=== PATIENT | male | born 1990 | race Caucasian/White ===

== ENCOUNTER 2019-07-27 13:05 | Emergency (ER) | payer BC ==
[~2019-07-27] VITALS: Ht 167.6 cm; Wt 6.0 kg
--- NOTE | 2019-07-27 13:25 | NUR ---
PER SECURITY, PT OUTSIDE WITH FAMILY, CHANDA WENT OUT TO SEE IF PATIENT WILL COME IN.
[2019-07-27 14:42] LABS: CLARITY,URINE SLIGHTLY CLOUDY (Clear); COLOR,URINE AMBER (Yellow); GLUCOSE, URINE NEGATIVE (Neg); KETONES,URINE 15 mg/dl (Neg); LEUKOCYTE ESTERASE ,URINE NEGATIVE (Neg); NITRITES, URINE NEGATIVE (Neg); OCCULT BLOOD,URINE NEGATIVE (Neg); PH,URINE 5.5 (4.8-8.0); PROTEIN,URINE 30 mg/dl (Neg); UA COLLECTION TYPE CLN CATCH MIDSTREAM
[2019-07-27 14:48] LABS: AMORPHOUS URATES 1+; BACTERIA,URINE FEW /HPF (Neg); CAL OXALATE CRYSTALS 2+ /HPF (NEGATIVE); MUCUS STRANDS MANY /LPF (Neg); RBC,URINE NONE SEEN /HPF (0-2); SQUAMOUS EPITHELIAL CELL,UR FEW /LPF (FEW); WBC,URINE 0-4 /HPF (0-4)
--- NOTE | 2019-07-27 15:01 | NUR ---
Pt is calm and cooperative at this time. Pt has siter at bedside. Pt is awaiting lab draw for further orders or disposition.
[2019-07-27 15:34] LABS: BASOPHILS % (AUTO) 0.2 % (0-1); EOSINOPHILS % (AUTO) 0.1 % (0-6); HEMOGLOBIN 16.5 g/dl (14.0-17.9); LYMPHOCYTES # (AUTO) 1.4 X10'3 (1.1-4.8); LYMPHOCYTES % (AUTO) 9.7 % (21-51); MEAN CORPUSCULAR HGB CONC 34.3 g/dL (33.0-36.5); MEAN CORPUSCULAR VOLUME 90.5 FL (78-98); MEAN PLATELET VOLUME 6.9 FL (7.4-10.4); MONOCYTES # (AUTO) 0.9 X10'3 (0-0.9); MONOCYTES % (AUTO) 6.2 % (2-12); NEUTROPHILS # (AUTO) 11.8 X10'3 (1.8-7.7); NEUTROPHILS % (AUTO) 83.8 % (42-75); PLATELET COUNT 264 X10'3 (140-440); RED BLOOD COUNT 5.31 X10'6 (4.70-6.10); WHITE BLOOD COUNT 14.1 X10'3 (4.5-11.0)
[2019-07-27 15:56] LABS: ALANINE AMINOTRANSFERASE 31 U/L (12-78); ALBUMIN 4.4 G/DL (3.4-5.0); ALBUMIN/GLOBULIN RATIO 1.1 (1.1-1.5); ALKALINE PHOSPHATASE 72 IU/L (46-116); ANION GAP 10 (8-16); ASPARTATE AMINO TRANSFERASE 16 U/L (10-37); BILIRUBIN,TOTAL 0.8 MG/DL (0.1-1.0); BLOOD UREA NITROGEN 17 MG/DL (7-18); BUN/CREATININE RATIO 16.7 (5.4-32.0); CALCIUM 9.4 MG/DL (8.5-10.1); CHLORIDE 99 MMOL/L (99-107); CREATININE 1.02 MG/DL (0.60-1.10); GLUCOSE 94 MG/DL (70-104); POTASSIUM 4.2 MMOL/L (3.5-5.1); SODIUM 137 MMOL/L (135-145); TOTAL CARBON DIOXIDE 28.5 MMOL/L (24-32); TOTAL PROTEIN 8.3 G/DL (6.4-8.2); eGFR 87 ML/MIN
--- NOTE | 2019-07-27 16:00 | NUR ---
Pt is calm and cooperative, denies pain, respirations even and unlabored.
--- NOTE | 2019-07-27 16:00 | NUR ---
Note winstonone in EDM - 07/27/19 at 1621 by ERIC Pt is resting but wakes easily. Pt has sitter nearby. No distress noted. Chart re-faxed to [facility] office,
[2019-07-27 16:01] LABS: URINE AMPHETAMINE SCREEN NEGATIVE (Neg); URINE BARBITUATE SCREEN NEGATIVE (Neg); URINE BENZODIAZEPINES SCREEN NEGATIVE (Neg); URINE CANNABINOID SCREEN POSITIVE (Neg); URINE COCAINE SCREEN NEGATIVE (Neg); URINE METHADONE SCREEN NEGATIVE (Neg); URINE OPIATE SCREEN NEGATIVE (Neg); URINE PHENCYCLIDINE SCREEN NEGATIVE (Neg)
[2019-07-27 16:06] LABS: ETHANOL < 0.010 GM/DL (0.0-0.010)
[2019-07-27 16:07] LABS: ACETAMINOPHEN < 2.0 UG/ML (10-30)
[2019-07-27] MEDS ORDERED: HYDR50TA65 PO (16:35)
[2019-07-27] MEDS ORDERED: VENL37.589 PO (16:35)
[2019-07-27] MEDS ORDERED: OMEP-50 PO (16:35)
--- NOTE | 2019-07-27 16:36 | NUR ---
SPOKE WITH PT ABOUT CURRENT MEDS. PT REPORTS HE WAS STARTED ON VENLAFAXNE 37.5MG 07/04/19 . HE STATES HE WAS INSTRUCTED TO DOUBLE THE DOSE BY HIS PRIMARY CARE AFTER 1 MONTH IF HE FELT IT WAS WORKING. PT STATES HE STARTED TO INCREASE THE DOSE APROX 1 WEEK AGO AND HE SAID HE WAS "FEELING SO GOOD" HE STARTED TAKING MORE THAN 1/DAY. HE STATES HE MIGHT HAVE BEEN TAKING UP TO 3 THOUGHOUT A DAY. PT ALSO STATES HE STATED EATING "TIP BUTTER" THC EDDABLES A FEW DAYS AGO AND HE HAS NEVER HAD THEM BEFORE. PT HAS RAPPID ANTONIO AND IS VERY ANXIOUS. INFORMED PT SOME OF HIS S/S MIGHT BE RELATED TO THE INCREASE IN HIS DOES OF THE MEDS. PT STATES HE HAS NOT SLEPTED IN A FEW DAYS. AND HE WATCHES THE CLOCK TO BE ABLE TO TAKE THE HYDROXYZINE Q 8 HRS BECAUSE "IT THE ONLY THING THAT HELP ME NOW" DR MACIAS NOTIFIED
[2019-07-27] MEDS: hydrOXYzine 25 MG tablet PO PRN (17:17)
--- NOTE | 2019-07-27 18:00 | NUR ---
PT BECAME AGGITATED AND STARTED PACING AROUND THE THOUGHT HIS WAS IN DR FOURNIER OFFICE. PT HAS A COUGH WITH YELLOW/BROWN SPUTUM. PT WAS GIVEN AN RX BY PMD YESTERDAY FOR ZITHROMAX AND HE DID NOT HAVE IT FILLED. SPOKE WITH DR MACIAS RE INCREASING AGGITATION AFTER THE ATARAX AND COUGH. VERBAL ORDER TO STOP ATARAX, ATIVAN 2MG IM AND START ZITHROMAX 500MG TONIGHT AND THEN 250MG PO DAILY X 4DAYS.
[2019-07-27] MEDS ORDERED: azithromycin 250mg tablet PO ONE (18:30)
[2019-07-27] MEDS ORDERED: LORazepam 2 mg/ml vial IM ONE (18:30)
--- NOTE | 2019-07-27 18:30 | NUR ---
EXPLAINED TO PT ABOUT REASON FOR ATIVAN PT WAS UNDERSTANDING AND ACCEPTING OF THE IM INJECTION. INTRODUCED PT TO CHERYL FROM [facility] AND [facility] AND EXPLAINED THEY WILL BE HERE TONIGHT IF HE NEEDS TO TALK PT UNDERSTATNDS. PT EATING DINNER AT THIS TIME
--- NOTE | 2019-07-27 19:00 | NUR ---
PT JACK [phone]
--- NOTE | 2019-07-27 19:24 | NUR ---
Elopement band #35 placed on pt's left wrist.
[2019-07-27] MEDS ORDERED: LORazepam 1 MG tablet PO ONE (20:15)
[2019-07-27] MEDS ORDERED: ziprasidone 20mg capsule PO ONE (20:15)
--- NOTE | 2019-07-27 20:22 | NUR ---
PATIENT PACING IN ROOM, FIGETING PUPILS DIALATED, ATTEMPTED TO WALK OUT THE BACK DOOR: REDIRECTED VERBALLY BACK TO BED: DID NOT OPEN DOOR ELOPEMENT BAND ON PATIENT: SECURITY HERE
--- NOTE | 2019-07-27 20:25 | NUR ---
SPOKE TO MD MACIAS REGARDING INCREASING AGITATION, FASTER PACING, SWEATY; DISCUSSED SEROTONIN SYNDROME.
--- NOTE | 2019-07-27 22:30 | NUR ---
CALLED PATIENTS WHO REPORTED NUMBER OF PILLS IN EFFEXOR BOTTLE AND ATARAX. PATIENT APPEARS TO HAVE INGESTED 9 PILLS MORE THAN HE SHOULD HAVE TAKEN. PATIENT IS PARANOID AND TALKING TO HIMSELF AT TIMES
--- NOTE | 2019-07-28 00:41 | NUR ---
PATIENT APPEARS TO BE SLEEPING RR EVEN AND UNLABORED WRAPPED IN BLANKET
--- NOTE | 2019-07-28 01:32 | NUR ---
Packet sent to [facility]. Unable to confirm receipt of packet as [id number] hours.
--- NOTE | 2019-07-28 02:24 | NUR ---
PATIENT APPEARS TO BE SLEEPING RR EVEN AND UNLABORED IN ROOM 20 IN ER OVERFLOW ON HIS LEFT SIDE
--- NOTE | 2019-07-28 04:21 | NUR ---
PATIENT APPEARS TO BE SLEEPING RR EVEN AND UNLABORED ON BACK
[2019-07-28 04:26] VITALS: BP 142/81
--- NOTE | 2019-07-28 06:05 | NUR ---
PER PATIENT'S ATARAX PRSCRIPTION: HE MAY HAVE TAKEN 4 PILLS MORE THAT PRESCRIBED
--- NOTE | 2019-07-28 07:25 | NUR ---
AWAKE AND ALERT. WALKING AROUND TO BATHROOM AND AROUND BED AREA. CALLED ON PHONE. APPEARS SLIGHTLY AGITATED, BUT IS COOPERATIVE WITH STAFF AT PRESENT.
[2019-07-28] MEDS: hydrOXYzine 25 MG tablet PO PRN (07:36)
--- NOTE | 2019-07-28 07:45 | NUR ---
PATIENT IS ACTIVE, WANDERING AROUND UNIT. MORNING MEDICATIONS GIVEN TO PATIENT. SECURITY ALERT TO POTENTIAL ELOPEMENT SITUATION.
[2019-07-28] MEDS ORDERED: pantoprazole 40mg Tablet.DR PO SCH (08:00)
[2019-07-28] MEDS ORDERED: venlafaxine XR 37.5mg cap (Q24H) PO SCH (08:00)
[2019-07-28] MEDS ORDERED: nicotine 7mg patch - 24hr TD SCH (09:00)
--- NOTE | 2019-07-28 09:50 | NUR ---
[facility] MENTAL HEALTH WORKER AT THE BEDSIDE TO EVALUATE PATIENT.
--- NOTE | 2019-07-28 10:22 | NUR ---
Break RN:[facility]/Whit at bedside.
--- NOTE | 2019-07-28 10:23 | NUR ---
Whit requesting med recommendations re:if patient needs flexeril dosage adjustment since it's making patient manic.Tech called [facility],no one available to eval patient at this time.Will relay to Primary RN.
--- NOTE | 2019-07-28 10:25 | NUR ---
patient up to the bathroom.
--- NOTE | 2019-07-28 10:57 | NUR ---
RESTING IN BED, WALKING AROUND ON AND OFF. NO DISTRESS NOTED.
--- NOTE | 2019-07-28 13:18 | NUR ---
RELIEVING RN FOR BREAK, PT IS SITTING UP ON EDGE OF BED TO EAT LUNCH, PT IS CALM AND COOPERATIVE
--- NOTE | 2019-07-28 13:44 | NUR ---
PT TALKING WITH MOM ON PHONE AND WOULD LIKE HER TO COME VISIT. SPOKE TO JASKARAN-MOM SAID IT WAS OK
--- NOTE | 2019-07-28 14:50 | NUR ---
RELIEVING RN FOR BREAK, PT RESTING IN BED, NO NEEDS AT THIS TIME.
--- NOTE | 2019-07-28 15:38 | NUR ---
PATRICIA ULRICH CONSULTED ON PT AND RECOMMENDS DISCHARGED. HE INFORMED DR. NJ AND SHE WILL BE WRITING DISCHARGE ORDERS. PARENTS AT BEDSIDE.
[2019-07-28] MEDS ORDERED: QUET-1 PO (16:02)
== END 2019-07-28 16:28 | disposition home or self-care (01) ==
LOC: ER 13:06
DX: F99 Mental disorder, not otherwise specified (principal); F17.200 Nicotine dependence, unspecified, uncomplicated; Z79.899 Other long term (current) drug therapy
CPT/HCPCS: 36415; 80053; 80305; 80320; 80329; 81001; 84439; 84443; 85025; 96372; 99284; J2060; Z7610

== ENCOUNTER 2020-05-24 05:14 | Emergency (ER) | payer BC, OTHER ==
[~2020-05-24] VITALS: Ht 167.6 cm; Wt 72.7 kg
[~2020-05-24 05:14] MED LIST: HYDR50TA65 PO; OMEP-50 PO; QUET-1 PO; VENL37.589 PO
[2020-05-24] MEDS ORDERED: LORazepam 2 mg/ml vial IM ONE ×2 (05:20→05:50)
[2020-05-24] MEDS ORDERED: haloperidol lactate 5mg/ml inj IM ONE (05:20)
[2020-05-24] MEDS ORDERED: diphenhydrAMINE 50 mg/ml inj IM ONE (05:20)
[2020-05-24 05:55] LABS: BASOPHILS % (AUTO) 0.2 % (0-1); EOSINOPHILS % (AUTO) 0.3 % (0-6); HEMOGLOBIN 15.4 g/dl (14.0-17.9); LYMPHOCYTES # (AUTO) 1.6 X10'3 (1.1-4.8); LYMPHOCYTES % (AUTO) 15.6 % (21-51); MEAN CORPUSCULAR HEMOGLOBIN 31.9 PG (27.0-31.0); MEAN CORPUSCULAR HGB CONC 35.1 g/dL (33.0-36.5); MEAN CORPUSCULAR VOLUME 90.8 FL (78-98); MEAN PLATELET VOLUME 6.9 FL (7.4-10.4); MONOCYTES % (AUTO) 9.5 % (2-12); NEUTROPHILS # (AUTO) 7.5 X10'3 (1.8-7.7); NEUTROPHILS % (AUTO) 74.4 % (42-75); PLATELET COUNT 225 X10'3 (140-440); RED BLOOD COUNT 4.84 X10'6 (4.70-6.10); RED CELL DISTRIBUTION WIDTH 12.2 % (11.5-14.5); WHITE BLOOD COUNT 10.1 X10'3 (4.5-11.0)
--- NOTE | 2020-05-24 06:20 | NUR ---
PACKET FAXED TO [facility]
[2020-05-24 06:24] LABS: ALANINE AMINOTRANSFERASE 20 U/L (12-78); ALBUMIN/GLOBULIN RATIO 1.3 (1.1-1.5); ALKALINE PHOSPHATASE 48 IU/L (46-116); ANION GAP 11 (8-16); ASPARTATE AMINO TRANSFERASE 20 U/L (10-37); BILIRUBIN,TOTAL 0.6 MG/DL (0.1-1.0); BLOOD UREA NITROGEN 12 MG/DL (7-18); BUN/CREATININE RATIO 13.6 (5.4-32.0); CALCIUM 9.5 MG/DL (8.5-10.1); CHLORIDE 103 MMOL/L (99-107); CREATININE 0.88 MG/DL (0.60-1.10); GLUCOSE 117 MG/DL (70-104); POTASSIUM 3.4 MMOL/L (3.5-5.1); SODIUM 137 MMOL/L (135-145); TOTAL CARBON DIOXIDE 23.4 MMOL/L (24-32); eGFR > 90 ML/MIN
--- NOTE | 2020-05-24 06:29 | NUR ---
PT BACK FROM CT, SLEEPING QUIETLY NO ACUTE DISTRESS NOTED AT THIS TIME.
[2020-05-24 06:34] LABS: ETHANOL < 0.010 GM/DL (0.0-0.010)
--- NOTE | 2020-05-24 09:20 | NUR ---
pt sleeping but arousable, cooperative in collecting urine. voided 300cc clear yellow urine in urinal.. ua sent to lab
[2020-05-24 09:35] LABS: CLARITY,URINE CLEAR (Clear); COLOR,URINE YELLOW (Yellow); GLUCOSE, URINE NEGATIVE (Neg); KETONES,URINE NEGATIVE (Neg); LEUKOCYTE ESTERASE ,URINE NEGATIVE (Neg); NITRITES, URINE NEGATIVE (Neg); OCCULT BLOOD,URINE NEGATIVE (Neg); PROTEIN,URINE NEGATIVE (Neg); UROBILINOGEN,URINE 0.2 E.U/dL (0.2-1.0)
[2020-05-24 09:44] LABS: URINE AMPHETAMINE SCREEN NEGATIVE (Neg); URINE BARBITUATE SCREEN NEGATIVE (Neg); URINE BENZODIAZEPINES SCREEN NEGATIVE (Neg); URINE CANNABINOID SCREEN POSITIVE (Neg); URINE COCAINE SCREEN NEGATIVE (Neg); URINE METHADONE SCREEN NEGATIVE (Neg); URINE OPIATE SCREEN NEGATIVE (Neg); URINE PHENCYCLIDINE SCREEN NEGATIVE (Neg)
[2020-05-24 09:49] LABS: UA COLLECTION TYPE CLN CATCH MIDSTREAM
--- NOTE | 2020-05-24 10:01 | NUR ---
PT in bed. Responds to verbal stimuli. Unable to answer questions re medical hx/meds d/t being tired
--- NOTE | 2020-05-24 10:12 | NUR ---
Update from Pt's Shantelle who called. Pt was recently started on Effexor but pt states pt was on this medication several months ago and had similar manic state rxn. She states his current Phys MD did not know this and started him on Effexor on May 13. Since then, pt has been having same rxn as before with increased anju and violent/erratic behavior. Pt Psychiatrist is Carolyn Parker from Dr Curiel office in [place]. Per pt , pt Psychiatrist had just written for pt to be off work for 1 month d/t current rxn and was recommending Inpt tx. She also recommended thyroid level be checked. Pt went to appt and was a few minutes late per and was told he had to reschedule. Pt also gave a better contact # . Pt would like to be updated as soon as more information known for pt status.
[2020-05-24] MEDS ORDERED: PROP10TA10 PO (10:24)
[2020-05-24] MEDS ORDERED: QUET-1 PO (10:32)
[2020-05-24] MEDS ORDERED: propranolol 10mg tablet PO PRN (10:45)
[2020-05-24] MEDS ORDERED: hydrOXYzine 25 MG tablet PO PRN (10:45)
--- NOTE | 2020-05-24 11:19 | NUR ---
Update Pt # . Shantelle. She states this is better #.
[2020-05-24] MEDS ORDERED: pantoprazole 40mg Tablet.DR PO SCH (11:30)
--- NOTE | 2020-05-24 11:55 | NUR ---
PT was up to go to the bathroom and then back to bed. [facility] tried to talk with pt but he was to sleepy
--- NOTE | 2020-05-24 14:00 | NUR ---
Pt continues to sleep. Awake to verbal stimuli. RN asked if pt wanted to eat. Pt still too sleepy
--- NOTE | 2020-05-24 16:35 | NUR ---
Pt awake, standing up out of bed. Ate lunch. [facility] at pt bedside for eval.
--- NOTE | 2020-05-24 17:08 | NUR ---
Pt up ambulates to bathroom, steady gait. Walking around bedside area to "stretch legs"
--- NOTE | 2020-05-24 19:00 | NUR ---
Patient is awake, cooperative, he is eating dinner. Mild anxiety, patient is up to void, he ambulates with no problem.
--- NOTE | 2020-05-24 20:13 | NUR ---
Patient complains of increasing anxiety. Atarax given as a PRN, nightime Seroquel was given also. Patient is cooperative, he states he feels better after speaking to this resume writer. Patient states a recent history of not taking psych medications, perhaps for a few days? Patient tells this resume writer that he has recentlly been diagnosed with thyroid problems and is scheduled to see a specialist on the of this month. Patient exhibits more anxiety while speaking about his recent medical history.
--- NOTE | 2020-05-24 20:28 | NUR ---
Report to Dc Tirado RN, Behavioral Health at [facility]. Admission is pending.
[2020-05-24] MEDS ORDERED: LORazepam 1 MG tablet PO ONE (20:40)
--- NOTE | 2020-05-24 20:49 | NUR ---
Ativan 1mg P0 for anxiety.
[2020-05-24] MEDS ORDERED: quetiapine 100mg tablet PO SCH (21:00)
--- NOTE | 2020-05-24 21:11 | NUR ---
Patient exhibits increasing manic behavior, he can still be redirected. Behavioral Health RN advised of changes.
[2020-05-24 21:16] VITALS: BP 125/79
--- NOTE | 2020-05-24 21:50 | NUR ---
Pt redirected to lay in bed and is compliant. He has been pacing back and forth infront of the nursing station.
== END 2020-05-24 22:16 ==
LOC: ER 05:15
DX: F29 Unspecified psychosis not due to a substance or known physiological condition (principal)
CPT/HCPCS: 36415; 70450; 80053; 80305; 80320; 81003; 84443; 85025; 96372; 99285; J1200; J1630; J2060; Q0177

== ENCOUNTER 2020-05-24 21:07 | Inpatient (IN) | payer BC, OTHER ==
[~2020-05-24] VITALS: Ht 172.7 cm; Wt 76.4 kg
[~2020-05-24 21:07] MED LIST changes: +PROP10TA10 PO
[2020-05-24] MEDS ORDERED: LORazepam 1 MG tablet PO PRN (22:05)
[2020-05-24] MEDS ORDERED: traZODone 50mg tablet PO PRN (22:05)
[2020-05-24] MEDS ORDERED: acetaminophen 325mg tablet PO PRN (22:05)
[2020-05-24] MEDS ORDERED: loperamide 2mg capsule PO PRN (22:05)
[2020-05-24] MEDS ORDERED: hydrOXYzine 25 MG tablet PO PRN (22:25)
[2020-05-24 22:30] VITALS: BP 136/88
[2020-05-24] MEDS ORDERED: calcium carbonate 500mg chew tablet PO ONE (23:10)
[2020-05-24] MEDS: NICOTINE POLACRILEX 2 MG LOZENGE BC PRN (23:13)
[2020-05-24] MEDS: nicotine 14mg patch - 24hr TD SCH (23:38)
[2020-05-24] MEDS ORDERED: nicotine 14mg patch - 24hr TD ONE (23:40)
--- NOTE | 2020-05-25 04:46 | NUR ---
RN PROGRESS NOTE: LEGAL HOLD: 5150 for GD. PSYCH HX: Reports being admitted to [facility]. Psychosis. Anxiety. MED HX: Client stated "I can't remember." REASON FOR ADMIT: Client BIB [employer] for behaving irrationally. Client was found at 03:[address] of employment running around in his underwear making nonsensical statements. Upon arriving at the hospital he told officers he was going to run. Client was brought into the hospital and put in restraints. Client has a and two children. His family is concerned about the change in his behavior. Client had similar symptoms last winter. Client arrived on unit at 22:10 in a wheelchair, accompanied by Zac العراقي and . He agreed to a skin assessment and then took a shower, changed into green scrubs. Clients thought process is disorganized, he is confused, and reports not being able to remember much about his medical or psych hx. Client wants to leave and be reunited with his . Client had difficulty falling asleep, paced in the lee, and has very high anxiety. Client doesn't appear to understand what is happening. He gives lengthy answers to questions that are unrelated to the topic. He was tearful when discussing his . Client does not want to be here and is likely a high elopement risk. He is re-directable. Client accepted 50 mg Trazodone PO and 1 mg ativan PO. He eventually fell asleep. DISCHARGE: Requires medication stabilization.
[2020-05-25] MEDS ORDERED: calcium carbonate 500mg chew tablet PO SCH (07:30)
[2020-05-25] MEDS: nicotine 14mg patch - 24hr TD SCH (07:43)
[2020-05-25 08:00] VITALS: BP 134/79
[2020-05-25] MEDS ORDERED: nicotine 14mg patch - 24hr TD SCH (08:00)
[2020-05-25] MEDS: pantoprazole 40mg Tablet.DR PO SCH (08:03)
[2020-05-25 08:08] LABS: HEMOGLOBIN A1C 5.3 % (4.5-6.2)
[2020-05-25 08:23] LABS: CHOL/HDL RATIO 3.7 (0.00-4.99); CHOLESTEROL 173 MG/DL (0-200); HDL CHOLESTEROL 47 MG/DL (35-60); LDL CHOLESTEROL 110 MG/DL (50-100); TRIGLYCERIDES 140 MG/DL (20-135)
[2020-05-25] MEDS: NICOTINE POLACRILEX 2 MG LOZENGE BC PRN ×2 (12:35→18:10)
--- NOTE | 2020-05-25 18:12 | NUR ---
Nursing Progress Note: Legal hold: 5150 Client on involuntary status for GD Report received from RN with use of SBAR. Why are they here: Client BIB [employer] for behaving irrationally. Client was found at 03:[address] of employment running around in his underwear making nonsensical statements. Upon arriving at the hospital he told officers he was going to run. Client was brought into the hospital and put in restraints. Client has a and two children. His family is concerned about the change in his behavior. Client had similar symptoms last winter. Assessment What has happened this shift: Received Pt in his room resting w/o distress at change of shift. Pt was cooperative with vital signs. Pt resistive to taking protonix, but did usp through breakfast stating youll have to tell my about this one. Pt wanted nicotine patch, yet wanted control of when it was applied. Overall irritated at being at [facility] and does not understand what he did as being a good reason for him to be here. Pt repeatedly states I am ready to go now and I want to leave now. Resistive to being here but mostly redirectable and calms when left alone. Overall guarded; pt talks about having a safe place to go, that me and my know about. Pt stingy with information about events of last 48hrs and just wants to leave. S/I, H/I: Denies A/VH: Denies Sleep: None this shift ADL's: Independent Group attendance: NA Were Meds taken: Yes Any med S/E: N/A Mental Status Exam Appearance: Casual Eye contact: Good Behavior: Polite at times; Guarded; irritated Speech: Clear Mood: Anxious Affect: Blunted Thought process: Linear Thought Content: Leaving [facility] Cognition: A/Ox3 Insight: Impaired Judgment: Impaired Interventions PRN's used: Nicotine Lozenges Therapeutic interventions: Encouraged and educated pt to the purpose of the AM, 1:1 assessment; provided therapeutic communication with active listening; monitoring of behaviors; provided medication administration/education/monitoring; maintained Q 15 minute safety checks. Restraints/seclusion/emergency medication: N/A Justification of Continued Inpatient Treatment: Pt continues to need mental health stabilization, he requires a safe and supportive environment with medication adjustments and monitoring to decrease risk of re-hospitalization.
[2020-05-25] MEDS ORDERED: hydrOXYzine 25 MG tablet PO PRN (18:50)
[2020-05-25 20:00] VITALS: BP 129/88
[2020-05-25] MEDS ORDERED: quetiapine 100mg tablet PO SCH (21:00)
[2020-05-25] MEDS: LORazepam 1 MG tablet PO SCH (21:02)
[2020-05-26] MEDS: NICOTINE POLACRILEX 2 MG LOZENGE BC PRN ×4 (00:34→21:27)
--- NOTE | 2020-05-26 00:34 | NUR ---
Patients primary nurse at lunch. Patient requested and was give a nicotine lozenge.
[2020-05-26] MEDS: acetaminophen 325mg tablet PO PRN (01:48)
--- NOTE | 2020-05-26 03:13 | NUR ---
Nursing Progress Note: Legal hold: 5150 Client on involuntary status for GD Report received from LAURA Kee with use of SBAR. Why are they here: Client BIB [employer] for behaving irrationally. Client was found at 03:[address] of employment running around in his underwear making nonsensical statements. Upon arriving at the hospital he told officers he was going to run. Client was brought into the hospital and put in restraints. Client has a and two children. His family is concerned about the change in his behavior. Client had similar symptoms last winter. Assessment What has happened this shift: The patient was seen at bedside for 1:1. he was at first irritable, but warmed after a few minutes. He has been on and off the phone with his , trying to get clothes brought to him. She brought them and this nurse brought them up for him. He is guarded with information, or just doesn't understand why he is here. The patient understands he will be here for at least a couple more days, and says he can do that. He was compliant with his medication and went to bed, only to wake later with a headache. He was given Tylenol, then went back to sleep. S/I, H/I: Denies A/VH: Denies Sleep: See sleep assessment ADL's: Independent Group attendance: Not at night. Were Meds taken: Yes Any med S/E: N/A Mental Status Exam Appearance: Casual, well groomed, wearing street clothes. Eye contact: Good Behavior: Cooperative, guarded, irritable Speech: Clear Mood: Anxious Affect: Blunted Thought process: Linear Thought Content: Leaving [facility] Cognition: A/Ox3 Insight: Impaired Judgment: Impaired Interventions PRN's used: Nicotine Lozenges, Tylenol Therapeutic interventions: Encouraged and educated pt to the purpose of the AM, 1:1 assessment; provided therapeutic communication with active listening; monitoring of behaviors; provided medication administration/education/monitoring; maintained Q 15 minute safety checks. Restraints/seclusion/emergency medication: N/A Justification of Continued Inpatient Treatment: Pt continues to need mental health stabilization, he requires a safe and supportive environment with medication adjustments and monitoring to decrease risk of re-hospitalization.
[2020-05-26] MEDS: pantoprazole 40mg Tablet.DR PO SCH (07:53)
[2020-05-26] MEDS: nicotine 14mg patch - 24hr TD SCH (07:53)
[2020-05-26 08:00] VITALS: BP 124/88
--- NOTE | 2020-05-26 10:00 | NUR ---
Group Therapy: Process Group This Clinicians goals for this process group were as follows: (1) Ask scaling questions about Patients current anxiety, depression, and irritability symptoms as a check-in. (2) Share psychoeducation about self-efficacy, and ego strength. (3) Provide psychoeducation on [employer] Drama triangleVictim, Persecutor, Rescuer dynamic. (4) Share psychoeducation on developing positive ego strengthpositive affirmations, positive self-talk, transitioning from a victim of circumstances to a survivor of circumstances. (5) Process Clients thoughts and reflections on this topic within the group milieu. Patient identified experiencing the following levels of anxiety, depression, and anger/irritability while present in the group milieu. Anxiety: 05/26 Depression: 04/25 Anger/irritability: 07/26 Patient presented as open and cooperative within the group milieu. Patient wore nondescript, personal clothing that were appropriate within the group milieu. Patient presented as verbally subdued and nonobtrusive during the process group. On one occasion, this Clinician noticed that Patient was quietly crying within the group milieu. This Clinician gently encouraged Patient to engage in controlled breathing in order to calm down. On another occasion, Patient stood up during the process group and started bouncing up and down on his feet. During a portion of the process group, this Clinician checked in with different patients asking for them to identify a personal strength, virtue, or characteristic that they possess. Patient answered, "I'm good at rolling." This Clinician did not understand Patient's meaning and asked him what it meant to, "Roll." Patient smiled, but did not answer this question. Patient occasionally got up and left the group room two or three times during the process group before returning. He left for the final time approximately fifty-minutes into the process group and did not return. Kris Mandel MA, STRUCTURAL IRONWORKER Addendum: 05/26/20 at 1146 by Kris Mandel Amended: Links added.
[2020-05-26] MEDS: propranolol 10mg tablet PO PRN (13:00)
[2020-05-26] MEDS ORDERED: nicotine 14mg patch - 24hr TD ONE (14:30)
[2020-05-26] MEDS ORDERED: docusate sod 250mg capsule PO ONE (17:55)
[2020-05-26] MEDS: magnesium hydroxide 30ml (MOM) UD suspension PO PRN (18:07)
--- NOTE | 2020-05-26 18:13 | NUR ---
Nursing Progress Note: Legal hold: 5150 Client on involuntary status for GD Report received from RN with use of SBAR. Why are they here: Client BIB [employer] for behaving irrationally. Client was found at 03:[address] of employment running around in his underwear making nonsensical statements. Upon arriving at the hospital he told officers he was going to run. Client was brought into the hospital and put in restraints. Client has a and two children. His family is concerned about the change in his behavior. Client had similar symptoms last winter. Assessment What has happened this shift: Patient asleep at change of shift and up for breakfast. Patient more relaxed today. Patient's is bringing his glasses. Patient's contact came out of his eye and placed in a specimen cup with saline. Patient denies suicidal/homicidal ideation. Patient denies audio/visual hallucinations. Patient states he feels better about being here. Dr Cervantes office to fax a release of information which patient will sign so can get information from Dr Cervantes office. Patient was social today and did have some anxiety. Patient given Inderal and Atarax. Patient is feeling very constipated and given Mom and Colace. Patient states it's hard for him to have a BM with other people in the room. RN advised patient to use the lee BR and to ask an RN to open it for him. S/I, H/I: Denies A/VH: Denies Sleep: None this shift ADL's: Independent Group attendance: No Were Meds taken: Yes Any med S/E: N/A Mental Status Exam Appearance: Casual Eye contact: Good Behavior: Polite Speech: Clear Mood: Anxious at times Affect: Flat Thought process: Linear Thought Content: Leaving [facility] Cognition: A/Ox3 Insight: Fair Judgment: Fair Interventions PRN's used: Nicotine Lozenges, Inderal, Atarax, Mom, Colace Therapeutic interventions: Encouraged and educated pt to the purpose of the AM, 1:1 assessment; provided therapeutic communication with active listening; monitoring of behaviors; provided medication administration/education/monitoring; maintained Q 15 minute safety checks. Restraints/seclusion/emergency medication: N/A Justification of Continued Inpatient Treatment: Pt continues to need mental health stabilization, he requires a safe and supportive environment with medication adjustments and monitoring to decrease risk of re-hospitalization.
[2020-05-26 20:01] VITALS: BP 138/97
[2020-05-26] MEDS: hydrOXYzine 25 MG tablet PO SCH (20:15)
[2020-05-26] MEDS: LORazepam 1 MG tablet PO SCH ×2 (20:15→23:07)
[2020-05-26] MEDS ORDERED: divalproex sod 250mg ER (24-hour) tablet PO SCH (21:00)
[2020-05-26] MEDS: mag hydrox/Alum hydrox/simeth 30ml oral suspension PO PRN (23:07)
--- NOTE | 2020-05-27 01:15 | NUR ---
Nursing Progress Note: Legal hold: 5150 Client on involuntary status for GD Report received from LAURA Kee with use of SBAR. Why are they here: Client BIB [employer] for behaving irrationally. Client was found at 03:[address] of employment running around in his underwear making nonsensical statements. Upon arriving at the hospital he told officers he was going to run. Client was brought into the hospital and put in restraints. Client has a and two children. His family is concerned about the change in his behavior. Client had similar symptoms last winter. Assessment What has happened this shift: The patient was seen at bedside for 1:1. "I haven't had a Bm since I got here, but the Doctor gave me a poop softener, and then I was given MoM later. I've had a stomach ache all day cause of it." He was later given Maalox also. The patient says that the Doctor also started him on Depakote tonight. "I'm willing to give it a try." He was compliant with medications and went to bed, only to wake ~2300. He was given Ativan again to try and sleep, but he has been doing odd behaviors since then, folding his clothes and placing them across the threshold to his room. Standing on the threshold and walking backwards out of the room and then walking in, or standing in the lee and staring at the rules on the wall, and making little notes on a paper with writing scribbled in all directions, then comes out of room sitting various places along the wall staring at Nurses station. The patient won't talk about his problems or what is causing them, and does not have insight into his situation. He has been out looking at the clock and has mentioned 0130 a couple times, but won't put it into context. The patient has finally agreed to lay down and try to sleep while using calming techniques. At 0230, he is finally asleep. S/I, H/I: Denies A/VH: Denies Sleep: See sleep assessment ADL's: Independent Group attendance: Not at night. Were Meds taken: Yes Any med S/E: N/A Mental Status Exam Appearance: Casual, well groomed, wearing street clothes. Eye contact: Good Behavior: Cooperative, guarded, irritable Speech: Clear Mood: Anxious Affect: Blunted Thought process: Linear Thought Content: Leaving [facility] Cognition: A/Ox3 Insight: Impaired Judgment: Impaired Interventions PRN's used: Nicotine Lozenges, Hydroxyzine Therapeutic interventions: Encouraged and educated pt to the purpose of the AM, 1:1 assessment; provided therapeutic communication with active listening; monitoring of behaviors; provided medication administration/education/monitoring; maintained Q 15 minute safety checks. Restraints/seclusion/emergency medication: N/A Justification of Continued Inpatient Treatment: Pt continues to need mental health stabilization, he requires a safe and supportive environment with medication adjustments and monitoring to decrease risk of re-hospitalization.
[2020-05-27 07:38] VITALS: BP 141/94
[2020-05-27] MEDS: pantoprazole 40mg Tablet.DR PO SCH (08:16)
[2020-05-27] MEDS: hydrOXYzine 25 MG tablet PO SCH ×3 (08:16→20:14)
[2020-05-27] MEDS: nicotine 14mg patch - 24hr TD SCH (08:21)
[2020-05-27] MEDS: NICOTINE POLACRILEX 2 MG LOZENGE BC PRN ×3 (09:35→22:33)
--- NOTE | 2020-05-27 10:00 | NUR ---
Group Therapy: Process Group This Clinicians goals for this process group were as follows: (1) Ask scaling questions about patients current anxiety, depression, and irritability symptoms as a check-in. (2) Share psychoeducation about three rules of brief solution-focused problem-solving: A) Stop doing what clearly isnt working, B) Do something different, C) If the different activity works, then do more of it. If it doesnt work, then go back to principle A). (3) Identify examples of thoughts, activities, and behaviors that people do that no longer work for them, or they create more problems than solutions. (4) Identify examples of thoughts, activities, and behaviors that may help create better emotional/behavioral outcomes and lead to good solutions to problems. (5) Engage patients in discussion of the topics shared within the group milieu. Patient identified experiencing the following levels of anxiety, depression, and anger/irritability while present in the group milieu. Anxiety: 03/26 Depression: 12/24 Anger/irritability: "I don't know." Patient presented as open and cooperative within the group milieu. Patient wore nondescript, personal clothing that were appropriate within the group milieu. Patient's thought process was clear, and content. Patient's thought process was clear, coherent, and linear. This Clinician did not observe Patient responding to any internal stimuli during session. Patient presented as verbally engaged and nonobtrusive during the process group. On one occasion, this Clinician asked Patient a question in the context of the discussion of brief solution-focused problem solving strategies, to which Client responded--with his eyes open, "I'm asleep." During conversation of proposed solutions to getting over a fear of spiders, Patient spoke up on his own initiative questioning whether we were referencing a brand of automobile that was featured in one of the "Fast and the Furious" movies, called, a, "Spyder." This Clinician praised Client for the creativity that he showed for making this play on words. Patient remained within the milieu for the majority of the process group, only leaving occasionally before returning soon thereafter. He moved around several times and sat in different spots within the group room. Kris Mandel MA, MARITIME PILOT Addendum: 05/27/20 at 1126 by Kris Mandel SS Amended: Links added.
--- NOTE | 2020-05-27 15:11 | NUR ---
Nursing Progress Note: Legal hold: 5150 Client on involuntary status for GD Report received from Amanda SANCHEZ with use of SBAR. Why are they here: Client BIB [employer] for behaving irrationally. Client was found at 03:[address] of employment running around in his underwear making nonsensical statements. Upon arriving at the hospital he told officers he was going to run. Client was brought into the hospital and put in restraints. Client has a and two children. His family is concerned about the change in his behavior. Client had similar symptoms last winter. Assessment What has happened this shift: Pt rated his depression at a 9/10 this morning. He denied SI/HI/AH. When asked about VH, he replied, "not lately, not since I've been in here." Asked pt what he liked to be called. Pt said that his name was pronounced, "Britt." Pt was cooperative with morning medications and physical assessment. After auscultation of pt's heart he stated, "my real dad, he had a heart attack and quite young, he actually had a heart transplant, he had the heart of an 87 year old woman but he of kidney failure. Every time someone listens to my heart it hits close to home." Pt appears restless and anxious at times. He quickly walked into the charting/seclusion room and approached this RN just before 1400 to ask if he had any medications scheduled. Pt admitted to feeling anxious, stated that the hydroxyzine helps and he wanted to take it before group. Explained to pt that the medication was scheduled at 1500 but I could give it up to one hour early and so would bring it to him in a couple of minutes. Pt hovered for a few seconds then expressed understanding and left the room. No door checking noted or unsafe behaviors this shift. S/I, H/I: Pt denies A/VH: Pt denies Sleep: Pt slept only 3.25 hours last night per noc shift report. ADL's: Independent Group attendance: Yes Were Meds taken: Yes Any med S/E: None noted or reported. Mental Status Exam Appearance: Youngish appearing man wearing samuel sweatpants, a red white and blue baseball cap, a bright construction orange sweatshirt with reflective silver stripes on it, and glasses. Eye contact: Good Behavior: Restless, cooperative, some sporadic, jerky body movements and awkward movement mannerisms noted. Speech: Clear, audible, somewhat rapid when spoken to though speech is minimal, pt is mostly quiet. Mood: Depressed Affect: Anxious Thought process: Loose associations, circumstantial with mild disorganization. Thought Content: Thoughts of his dad who when pt was young. Cognition: A/O X 3 Insight: Poor Judgment: Fair Interventions PRN's used: None Therapeutic interventions: 1:1 assessment, establishment of rapport, active listening, therapeutic conversation, encouragement to attend groups, ensured contract for safety, medication administration/education/monitoring, Q 15 minute safety checks. Restraints/seclusion/emergency medication: N/A Justification of Continued Inpatient Treatment: Pt continues to need mental health stabilization, he requires a safe and supportive environment with medication adjustments and monitoring to decrease risk of re-hospitalization.
[2020-05-27] MEDS: divalproex sod 250mg ER (24-hour) tablet PO SCH (20:14)
[2020-05-27 20:17] VITALS: BP 145/95
[2020-05-27] MEDS: magnesium hydroxide 30ml (MOM) UD suspension PO PRN (22:33)
--- NOTE | 2020-05-28 00:19 | NUR ---
Nursing Progress Note: Legal hold: 5150 Client on involuntary status for GD Report received from LAURA Kee with use of SBAR. Why are they here: Client BIB [employer] for behaving irrationally. Client was found at 03:[address] of employment running around in his underwear making nonsensical statements. Upon arriving at the hospital he told officers he was going to run. Client was brought into the hospital and put in restraints. Client has a and two children. His family is concerned about the change in his behavior. Client had similar symptoms last winter. Assessment What has happened this shift: The patient was seen at bedside for 1:1. At this time he wasn't in the mood to talk. A little later I caught up to him in the group room while he played [employer] with a couple other clients. The patient was calm and enjoying himself. He had snacks at snack time and took his meds. He said he would be able to sleep. He went to his room to sleep. The patient came out at 2330 and said he can't sleep. This nurse spent some time with him to see if he would open up. The patient is labile, but remained calm. He said he had been on 2 day suspension from work when he showed up at 0300 in his underwear. "I did it to make a point." He couldn't explain what the point was, but he understands that that was out of character for him. He was brought here, and is realizing it was the right thing to happen. He does not know whether he still has a job. His is taking care of everything right now. He spoke of his "less than honorable discharge from the service" He does not know if he has the GI Bill. The patient feels like he is letting his family down due to his actions, but doesn't know how to stop it. He perseverates on things that aren't important, like his papers that have nonsense written on them. "I lay down to sleep, but my head just keeps going." It makes him restless, anxious, and irritable. The patient will talk to the doctor tomorrow and and ask for more help sleeping. He is on his bed now, and appears to be sleeping, hopefully the rest of the night. S/I, H/I: Denies A/VH: Denies Sleep: See sleep assessment ADL's: Independent Group attendance: Not at night. Were Meds taken: Yes Any med S/E: N/A Mental Status Exam Appearance: Casual, well groomed, wearing street clothes. Eye contact: Good Behavior: Cooperative, labile, teary, guarded, irritable, restless Speech: Clear Mood: Labile Affect: Blunted Thought process: Linear Thought Content: Leaving [facility] Cognition: A/Ox3 Insight: Impaired Judgment: Impaired Interventions PRN's used: Nicotine Lozenges, MoM. Therapeutic interventions: Encouraged and educated pt to the purpose of the AM, 1:1 assessment; provided therapeutic communication with active listening; monitoring of behaviors; provided medication administration/education/monitoring; maintained Q 15 minute safety checks. Restraints/seclusion/emergency medication: N/A Justification of Continued Inpatient Treatment: Pt continues to need mental health stabilization, he requires a safe and supportive environment with medication adjustments and monitoring to decrease risk of re-hospitalization.
[2020-05-28] MEDS: propranolol 10mg tablet PO PRN ×2 (05:18→17:20)
[2020-05-28] MEDS: hydrOXYzine 25 MG tablet PO SCH ×3 (07:27→20:56)
[2020-05-28] MEDS: pantoprazole 40mg Tablet.DR PO SCH (07:27)
[2020-05-28] MEDS: nicotine 14mg patch - 24hr TD SCH (07:33)
[2020-05-28] MEDS: NICOTINE POLACRILEX 2 MG LOZENGE BC PRN ×3 (07:41→22:57)
[2020-05-28] MEDS ORDERED: LORazepam 1 MG tablet PO ONE (08:05)
[2020-05-28 08:44] VITALS: BP 120/89
--- NOTE | 2020-05-28 15:42 | NUR ---
Nursing Progress Note: Legal hold: 5250 Client on involuntary status for GD Report received from Amanda SANCHEZ with use of SBAR. Why are they here: Client BIB [employer] for behaving irrationally. Client was found at 03:[address] of employment running around in his underwear making nonsensical statements. Upon arriving at the hospital he told officers he was going to run. Client was brought into the hospital and put in restraints. Client has a and two children. His family is concerned about the change in his behavior. Client had similar symptoms last winter. Assessment What has happened this shift: Pt c/o increased anxiety this morning, he requested a nicotine lozenge at 0741. Pt was hyperverbal with pressured speech. Pt stated, "everyone's worried about me...I can't go to my room, I mean I can, me and Brady (his roommate) are working out the light and stuff." Pt demanded to know if it was okay to shut his room door and leave it open just a crack. Told pt that as long as he was being safe that this should be fine. Pt perseverated on staff telling him this was not okay and why did they tell him that. Pt asked, "I'm voluntary right?! Then I should be able to leave when I fucking want to!" Encouraged pt to wait and speak with the doctor once he came in. Pt became agitated, pt packed up all of his belongings and placed them on top of his bed. Pt is labile, he was angry and agitated one moment rapidly switching to sad and tearful the next. Pt stated, "It's got to be my own choice." Pt then picked up the Bible in his room and stated, "talk to the chapel, talk to the chapel." Pt stated that another pt had convinced him to stay through breakfast. Obtained order for Ativan 1 mg PO X 1, administered at 0814. KAPIL Parsons came and placed pt on a 5250 (his status had been changed to voluntary yesterday evening.) Pt approached this nurse in the charging room. He was wearing 2 baseball style caps on his head at once. Pt expressed frustration over being placed on a 5250. Pt stated that he was offended that he had been called "Sir" and "bud." Pt sat down on the floor and became tearful. Pt asked this RN if I wanted to know about his hats. Pt stated that the red, white, and blue cap was the one he put on when he wanted a "chaw" and the other cap had a hard hat inside of it and was his work hat and made him feel safe. Pt's speech was disorganized, he was tangential, he expressed paranoid ideation with delusions of persecution. Provided active listening, attempted reassurance and reality orientation but pt rambled on expressing feelings of victimization. Pt stated that he prefers female therapists and nurses, that he is more comfortable around women. Pt complained of racing thoughts and perseverated on small things like wanting 2 notepads in his room and a [place] [employer] green marker. Pt's Connie called, chemical unit operator was able to get pt to agree to sign ANATOLY for only. This RN spoke with pt's . She was concerned because the pt had called her to tell her that he was being released home today. does not feel pt is ready, he is not acting like himself. stated that she was scared because before pt had become violent at home the day this episode started. They have 2 small children ages 3 and 6 and pt had been yelling at them for no reason and punching holes in the [place]. described pt making paranoid, delusional statements to her on the phone saying things that weren't real like that his sister and her were there while he was being "intaken" and laughing at him. states that they were not present. stated she has been with the pt for 10 years and his first episode was last July after being prescribed a medication, he had not been sleeping and he had auditory and visual hallucinations. Pt did calm down for the most part for the remainder of the shift. He was pleased to learn that Dr Terrazas would be speaking with him later this afternoon. S/I, H/I: Pt denies A/VH: Pt denies Sleep: Pt only slept 3 hours last night per noc shift report. ADL's: Independent Group attendance: No Were Meds taken: Yes Any med S/E: None noted or reported. Mental Status Exam Appearance: Youngish appearing man with short brown hair and a reddish zacarias and moustache wearing glasses, dressed in his orange work hoodie and sweats. Eye contact: Good Behavior: Hypomanic, agitated, disorganized Speech: Hyperverbal, rapid, pressured. Mood: Labile Affect: Labile Thought process: Paranoid, delusional, disorganized racing thoughts. Thought Content: Statements of persecution, wants to leave, upset placed on a 5250. Cognition: A/O X 3, disoriented to situation Insight: Poor Judgment: Poor Interventions PRN's used: Nicotine lozenge Therapeutic interventions: 1:1 assessment,active listening, therapeutic conversation, ensured contract for safety, medication administration/education/monitoring, behavior monitoring and intervention as needed; verbal de-escalation, reality orientation, redirection, positive reinforcement, Q 15 minute safety checks. Restraints/seclusion/emergency medication: N/A Justification of Continued Inpatient Treatment: Pt is not stable, he is not sleeping well, he is labile, hyperverbal, paranoid, and delusional. He needs further medication adjustment and monitoring in a safe and therapeutic environment until stable to prevent harm to self or others or early readmission.
--- NOTE | 2020-05-28 17:04 | NUR ---
Late Note for contact on 05/27/20 SS met w/pt engaged him in completing psychosocial assessment, PHQ-9 Depression Screening and athe MDQ-Survey. Kanchan Crenshaw LCSW Addendum: 05/28/20 at 1706 by Kanchan Crenshaw Amended: Links added.
[2020-05-28 17:17] VITALS: BP 120/92
[2020-05-28 19:31] VITALS: BP_SYST 141
[2020-05-28] MEDS: divalproex sod 250mg ER (24-hour) tablet PO SCH (20:56)
[2020-05-28] MEDS: LORazepam 1 MG tablet PO SCH (20:57)
[2020-05-28] MEDS: QUEtiapine 25mg tablet PO SCH ×2 (20:57→22:46)
[2020-05-28] MEDS: mag hydrox/Alum hydrox/simeth 30ml oral suspension PO PRN (22:58)
--- NOTE | 2020-05-28 23:09 | NUR ---
Nursing Progress Note: Legal hold: 5250 Client on involuntary status for GD Report received from LAURA Kee with use of SBAR. Why are they here: Client BIB [employer] for behaving irrationally. Client was found at 03:[address] of employment running around in his underwear making nonsensical statements. Upon arriving at the hospital he told officers he was going to run. Client was brought into the hospital and put in restraints. Client has a and two children. His family is concerned about the change in his behavior. Client had similar symptoms last winter. Assessment What has happened this shift: Pt was in his room talking on the phone during shift change. Talked on the phone with his family for some time. He was pleasant and appropriate, socializing with other peers throughout the evening. He was cooperative during 1:1 physical assessment and took all his HS meds, including new order of Seroquel 150mg. He denies any A/VH, S/I, H/I, depression or anxiety. He is concerned that he might not sleep tonight as he sates that he slept on an off throughout the day. At around 2230, pt woke up and was upset that one of the other patients was pacing. Apparently he told this pt you need to stop pacing now. There was no escalation from this but pt had a hard time going back to sleep after this. Second dose of Seroquel as given with minimal effect. He was observed in and out of his room multiple times, and did not show signs of even trying to go to sleep. Pt states that he just worries about everything and has too many things on his mind. Encourage him to just relax and to attempt to go to sleep. He did request nicotine lozenge and Maalox as he was c/o a stomach upset. S/I, H/I: Denies A/VH: Denies Sleep: See sleep assessment ADL's: Independent Group attendance: No groups during night monitor Were Meds taken: Yes Any med S/E: None reported or observed Mental Status Exam Appearance: Appropriate, wearing personal clothing Eye contact: Good, direct Behavior: Cooperative, socializing, irritable, temperamental Speech: Clear Mood: Labile Affect: Blunted with intermittent brightening Thought process: Linear Thought Content: His family, concerned he wont be able to sleep, medication Cognition: A/Ox3 Insight: Poor Judgment: Poor Interventions PRN's used: Second dose of Seroquel, nicotine lozenge, Maalox Therapeutic interventions: Encouraged and educated pt to the purpose of the AM, 1:1 assessment; provided therapeutic communication with active listening; monitoring of behaviors; provided medication administration/education/monitoring; maintained Q 15 minute safety checks. Restraints/seclusion/emergency medication: N/A Justification of Continued Inpatient Treatment: Pt continues to need mental health stabilization, he requires a safe and supportive environment with medication adjustments and monitoring to decrease risk of re-hospitalization.
[2020-05-29] MEDS: pantoprazole 40mg Tablet.DR PO SCH (07:18)
[2020-05-29] MEDS: hydrOXYzine 25 MG tablet PO SCH ×3 (07:18→20:29)
[2020-05-29] MEDS: nicotine 14mg patch - 24hr TD SCH (07:23)
[2020-05-29 07:41] VITALS: BP 127/87
[2020-05-29] MEDS: NICOTINE POLACRILEX 2 MG LOZENGE BC PRN ×5 (09:11→23:53)
--- NOTE | 2020-05-29 10:00 | NUR ---
Group Therapy: Process Group This Clinicians goals for this process group were as follows: (1) Ask scaling questions about Patients current anxiety, depression, and irritability symptoms as a check-in. (2) Share psychoeducation about the importance of being able to identify regular activities, support people, and thoughts (Anchors) that contribute to mental health well-being and stability. (3) Share psychoeducation about how the gradual removal of said activities, people and behaviors may lead to the erosion of mental well-being and stability. (4) Encourage patients to identify support anchors that they need to maintain in their lives that will promote their mental and emotional well-being. (5) Engage Patients in discussion of the topics shared within the group milieu. Patient identified experiencing the following levels of anxiety, depression, and anger/irritability while present in the group milieu. Anxiety: 4.5/10 Depression: 2/10 Anger/irritability: 1/10 Patient was present during the first twenty minutes of the process group, and the last five minutes of the process group. Patient was dressed in personal, nondescript clothing that were appropriate within the milieu. Patient's thought content was clear, and concrete. Patient's thought process was clear, coherent and linear. Patient did not appear to be responding to any internal stimuli during session. This Clinician provided patients with two, two-sided psychoeducation handouts on the CBT concept of core beliefs at the beginning of the process group. He then proceeded to illustrate certain teaching points on the white board. Patient asked this Clinician, "Where he was on the worksheets?" This Clinician informed him that he didn't need to look at the worksheets right now and that he could simply follow along with what this Clinician was discussing on the board. Patient calmly accepted this redirection. Later, this Clinician did refer to a specific portion of a specific worksheet during the process group. Patient snapped his pencil, stood up, stating, "I'm out of here." He then left the group milieu. Patient returned near the end of the group and sat down quietly. This Clinician checked in directly with Patient when the other patients had exited and asked him if he wanted to discuss what in group had bothered him. Initially Patient declined this invitation, stating, "I already talked to someone else about it, and I'm not mad anymore." This Clinician accepted this answer. Seconds later, Patient made comments about how he was upset that there was no power point that would have made it easier to follow the points being discussed and that the pages that this Clinician provided were not stapled. He verbalized frustration about how there were no colored pencils, which meant that he could not color a picture for his Daughter the way he wanted to. This Clinician thanked Patient for sharing his frustration. Patient made a point to mention that he was not mad at this Clinician. This Clinician declared that he understood this and that he had taken no offense when Patient left in a frustrated state. He welcomed him to come to group again tomorrow. Kris Mandel MA, WILFREDO Addendum: 05/29/20 at 1124 by Kris Mandel Amended: Links added. Addendum: 05/29/20 at 1130 by Kris CARVER CORRECTION The goal for this session is marked incorrectly in this process note. Please remove This Clinicians goals for this process group were as follows: (1) Ask scaling questions about Patients current anxiety, depression, and irritability symptoms as a check-in. (2) Share psychoeducation about the importance of being able to identify regular activities, support people, and thoughts (Anchors) that contribute to mental health well-being and stability. (3) Share psychoeducation about how the gradual removal of said activities, people and behaviors may lead to the erosion of mental well-being and stability. (4) Encourage patients to identify support anchors that they need to maintain in their lives that will promote their mental and emotional well-being. (5) Engage Patients in discussion of the topics shared within the group milieu. Please replace this goal information with: This Clinicians goal for this process group were as follows: (1) Share psychoeducation about core beliefs and how these beliefs shapes how one views reality. (2) Compare and contrast how people with different core beliefs might interpret an identical situation differently. (3) Discuss how changing negative core beliefs to more balanced, helpful, and rational alternatives can lead to improved behaviors and mood. (4) Process Clients thoughts and reflections on this topic within the group milieu. Kris Mandel MA, TIRE MANAGER
--- NOTE | 2020-05-29 11:32 | NUR ---
Eating well, 75-100% PO intake. Meeting needs. no nutrition problems at this time. Recommend: 1. continue regular diet 2. bowel care as needed 3. wt per rx Addendum: 05/29/20 at [address] Amended: Links added.
[2020-05-29 11:33] VITALS: BP 140/92
[2020-05-29] MEDS: propranolol 10mg tablet PO PRN (11:34)
--- NOTE | 2020-05-29 16:17 | NUR ---
Nursing Progress Note: Legal hold: 5250 Client on involuntary status for GD Report received from Macey SANCHEZ with use of SBAR. Why are they here: Client BIB [employer] for behaving irrationally. Client was found at 03:[address] of employment running around in his underwear making nonsensical statements. Upon arriving at the hospital he told officers he was going to run. Client was brought into the hospital and put in restraints. Client has a and two children. His family is concerned about the change in his behavior. Client had similar symptoms last winter. Assessment What has happened this shift: Pt reported that his anxiety was much better today since he slept better last night. He denied all other symptoms. Pt was writing things down on a notepad in his room this morning so he wouldn't forget them. At the top of his list of things to do was to call his daughter today at 0800. Pt became frustrated during morning group today per SS notes, he snapped a pencil and had a verbal outburst. Pt requested prn Nicotine patches today at 0911, 1134, an [id number]. He requested something for anxiety at 1134 and was given prn propranolol 10 mg with good effect. Pt was mostly calm, pleasant and cooperative today until he received a phone call from the pt's rights advocate about his 5250 hearing this afternoon. Pt labile, had a verbal emotional outburst, intermittent frustration/angry statements alternating with despondent tearful ones. He stated no one told him about the hearing, made paranoid statements about how no one was ever going to question his home life or ability to be a father to his kids again. Reality orientation provided that the hearing was for his benefit and that he did not have to attend if he didn't wish to. Pt had difficulty focusing on what this RN was saying due to high levels of emotion. He did eventually calm down. Pt went to his hearing and it was upheld. Pt made statements that he didn't like the way it was done. He said that he had requested a copy of the notes Ernestina had read during the hearing and he was waiting for her to get out so he could read them. He indicated that he did not like that she had mentioned statements his had made to her. Pt then asked if he could see a corrugator here. Explained that we could put in a request to have one come here to speak with him if he wished. Pt then stated that he didn't want one coming to talk to him in his room and then changed his mind about wanting to see one today and said he would think about it tomorrow. S/I, H/I: Pt denies A/VH: Pt denies Sleep: Pt slept 6 hours last night per noc shift report. ADL's: Independent Group attendance: Yes Were Meds taken: Yes Any med S/E: None noted or reported. Mental Status Exam Appearance: Youngish appearing man with short brown hair and a reddish zacarias and moustache wearing glasses, dressed in his orange work hoodie and sweats. Eye contact: Good Behavior: Mostly pleasant and cooperative with intermittent labile verbal outbursts. Speech: Clear, audible, talkative Mood: Labile Affect: Labile Thought process: Paranoid, delusions of persecution Thought Content: upset about his 5250 hearing today, doesn't like his sharing information with staff. Cognition: A/O X 3, reality distortion regarding situation. Insight: Poor Judgment: Poor Interventions PRN's used: Nicotine lozenges, propranolol 10 mg Therapeutic interventions: 1:1 assessment,active listening, therapeutic conversation, ensured contract for safety, medication administration/education/monitoring, behavior monitoring and intervention as needed; verbal de-escalation, reality orientation, redirection, positive reinforcement, Q 15 minute safety checks. Restraints/seclusion/emergency medication: N/A Justification of Continued Inpatient Treatment: Pt needs crisis interruption and medication adjustment and monitoring in a safe and therapeutic environment until stable to prevent harm to self or others or early readmission.
[2020-05-29 19:42] VITALS: BP 126/80
[2020-05-29] MEDS: divalproex sod 250mg ER (24-hour) tablet PO SCH (20:30)
[2020-05-29] MEDS: LORazepam 1 MG tablet PO SCH (20:30)
[2020-05-29] MEDS: acetaminophen 325mg tablet PO PRN (20:37)
[2020-05-29] MEDS: QUEtiapine 25mg tablet PO SCH ×2 (20:39→23:07)
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
--- NOTE | 2020-05-30 06:03 | NUR ---
Pt came up to this insurance underwriter sales and stated that he woke up from a nightmare. Believes that it is because he had too many nicotine lozenges and close to bedtime. Encouraged him to hold off on taking these no later than 7-8.
[2020-05-30] MEDS: nicotine 14mg patch - 24hr TD SCH (07:52)
[2020-05-30] MEDS: hydrOXYzine 25 MG tablet PO SCH ×3 (07:53→20:15)
[2020-05-30] MEDS: pantoprazole 40mg Tablet.DR PO SCH (07:53)
[2020-05-30 07:58] VITALS: BP 122/78
[2020-05-30] MEDS: NICOTINE POLACRILEX 2 MG LOZENGE BC PRN ×3 (09:22→20:57)
--- NOTE | 2020-05-30 10:00 | NUR ---
Group Therapy: Process Group [facility] Clinicians goals for this process group were as follows: (1) Ask scaling questions about patients current anxiety, depression, and irritability symptoms as a check-in. (2) Share psychoeducation about emotional relaxation techniques with patients, including information on: mindfulness, meditation controlled breathing, progressive muscle relaxation, guided visualization. (3) Model and practice controlled breathing, progressive muscle relaxation, and guided visualization with patients within the group milieu. (4) Process patients comments and reflections on the before-mentioned activities after they have participated in them. Patient identified experiencing the following levels of anxiety, depression, and anger/irritability while present in the group milieu. Anxiety: 210 Depression: 610 Anger/irritability: 0/10 Patient presented as open and cooperative within the group milieu. Patient was dressed in nondescript, personal clothing that were appropriate within the milieu. Patient's thought content was clear, and concrete. Patient's thought process was clear, coherent, and linear. This Clinician did not observe Patient responding to any internal stimuli during session. The rate, latency, and tone of Client's speech was within normal limits. Patient sustained regular eye contact with this Clinician when he spoke to him. Psychomotor activity was unremarkable. Patient presented as properly oriented x4 during the process group. Patient was verbally engaged and nonobtrusive within the group milieu. This Clinician observed Patient on several occasions practicing controlled breathing which was modeled and practiced by this Clinician alongside the other patients within the milieu. Kris Mandel MA, WILFREDO Addendum: 06/02/20 at 0826 by Kris Mandel SS Amended: Links added.
--- NOTE | 2020-05-30 14:41 | NUR ---
Nursing Progress Note Legal hold: 5250 Client on involuntary status for GD Report received from LAURA Valero with use of SBAR. Why are they here: Client BIB [employer] for behaving irrationally. Client was found at 03:[address] of employment running around in his underwear making nonsensical statements. Upon arriving at the hospital he told officers he was going to run. Client was brought into the hospital and put in restraints. Client has a and two children. His family is concerned about the change in his behavior. Client had similar symptoms last winter. Assessment What has happened this shift: Pt has been quiet today kept to himself. He spoke on the phone for awhile. He was started on Quetiapine 150mg QHS and states, I slept much better. He napped after lunch for 2-3 hours. S/I, H/I: Pt denies A/VH: Pt denies Sleep: Napped during the day ADL's: Independent Group attendance: Yes Were Meds taken: Yes Any med S/E: None noted or reported. Mental Status Exam Appearance: Nicely dressed in personal clothing. He states, he shaved and showered yesterday. Eye contact: Good Behavior: Calm, cooperative Speech: Clear, talkative Mood: Calm, withdrawn, isolative Affect: congruent w/mood Thought process: Circumstantial Thought Content: upset over not having my watch. Cognition: A/O X 3 Insight: Poor Judgment: Poor Interventions PRN's used: Nicotine lozenges, propranolol 10 mg Therapeutic interventions: Provided 1:1 assessment, therapeutic communication w/active listening, medication administration/education/monitoring, Q 15 minute safety checks. Restraints/seclusion/emergency medication: N/A Justification of Continued Inpatient Treatment: Pt needs crisis interruption and medication adjustment and monitoring in a safe and therapeutic environment until stable to prevent harm to self or others or early readmission.
[2020-05-30 19:27] VITALS: BP 136/83
[2020-05-30] MEDS: divalproex sod 250mg ER (24-hour) tablet PO SCH (20:14)
[2020-05-30] MEDS: QUEtiapine 25mg tablet PO SCH ×2 (20:15→21:20)
[2020-05-30] MEDS: LORazepam 1 MG tablet PO SCH (20:15)
[2020-05-30] MEDS: propranolol 10mg tablet PO PRN (21:24)
[2020-05-30] MEDS: OLANZapine 2.5MG tablet PO PRN (22:22)
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
[2020-05-31] MEDS: NICOTINE POLACRILEX 2 MG LOZENGE BC PRN ×5 (05:15→20:33)
[2020-05-31 07:50] VITALS: BP 138/81
[2020-05-31] MEDS: pantoprazole 40mg Tablet.DR PO SCH (08:30)
[2020-05-31] MEDS: hydrOXYzine 25 MG tablet PO SCH ×3 (08:30→20:19)
[2020-05-31] MEDS: nicotine 14mg patch - 24hr TD SCH (08:30)
--- NOTE | 2020-05-31 15:18 | NUR ---
Nursing Progress Note Legal hold: 5250 Client on involuntary status for GD Report received from LAURA Valero with use of SBAR. Why are they here: Client BIB [employer] for behaving irrationally. Client was found at 03:[address] of employment running around in his underwear making nonsensical statements. Upon arriving at the hospital he told officers he was going to run. Client was brought into the hospital and put in restraints. Client has a and two children. His family is concerned about the change in his behavior. Client had similar symptoms last winter. Assessment What has happened this shift: Pt has kept to himself most of the day. Encouraged him to journal his thoughts and to discuss his concerns with his doctors. He talked with his a couple of times today. He plans on returning home. He talked about how he forgets to take his medications during the day or at night which is what causes him to decompensate ending up in the hospital. S/I, H/I: denies A/VH: denies Sleep: Slept some in the AM ADL's: Independent Group attendance: Yes Were Meds taken: Yes Any med S/E: None noted or reported. Mental Status Exam Appearance: Wearing his personal clothing Eye contact: Good Behavior: Calm, guarded Speech: somewhat pressured Mood: labile Affect: congruent w/mood Thought process: tangential Thought Content: focused on taking his medications as ordered and discharge Cognition: A/Ox3 Insight: Improved (Fair) Judgment: Poor Interventions PRN's used: Nicotine lozenges Therapeutic interventions: Provided 1:1 assessment, therapeutic communication w/active listening, medication administration/education/monitoring, Q 15 minute safety checks. Restraints/seclusion/emergency medication: N/A Justification of Continued Inpatient Treatment: Pt needs crisis interruption and medication adjustment and monitoring in a safe and therapeutic environment until stable to prevent harm to self or others or early readmission.
--- NOTE | 2020-05-31 18:00 | NUR ---
Patient in room 324. I have received report from Stefani and had the opportunity to ask questions and assume patient care. Addendum: 05/31/20 at 2338 by Kelin Avendano RN Amended: Links added.
[2020-05-31 19:50] VITALS: BP 132/87
[2020-05-31] MEDS: divalproex sod 250mg ER (24-hour) tablet PO SCH (20:16)
[2020-05-31] MEDS: LORazepam 1 MG tablet PO SCH (20:17)
[2020-05-31] MEDS ORDERED: quetiapine 100mg tablet PO SCH (21:00)
[2020-06-01] MEDS: OLANZapine 2.5MG tablet PO PRN (04:30)
[2020-06-01] MEDS: NICOTINE POLACRILEX 2 MG LOZENGE BC PRN ×5 (04:32→20:33)
[2020-06-01 07:41] VITALS: BP 148/78
[2020-06-01] MEDS: pantoprazole 40mg Tablet.DR PO SCH (08:09)
[2020-06-01] MEDS: hydrOXYzine 25 MG tablet PO SCH ×3 (08:09→20:32)
[2020-06-01] MEDS: nicotine 14mg patch - 24hr TD SCH (08:10)
[2020-06-01] MEDS: propranolol 10mg tablet PO PRN (12:31)
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
[2020-06-01 20:00] VITALS: BP 147/96
[2020-06-01] MEDS: LORazepam 1 MG tablet PO SCH (20:32)
[2020-06-01] MEDS: divalproex sod 250mg ER (24-hour) tablet PO SCH (20:33)
[2020-06-01] MEDS: quetiapine 100mg tablet PO SCH (20:34)
[2020-06-02] MEDS: NICOTINE POLACRILEX 2 MG LOZENGE BC PRN ×5 (01:44→20:59)
--- NOTE | 2020-06-02 05:47 | NUR ---
Nursing Progress Note Legal hold: 5250 Client on involuntary status for GD Report received from LAURA Valero with use of SBAR. Why are they here: Client BIB [employer] for behaving irrationally. Client was found at 03:[address] of employment running around in his underwear making nonsensical statements. Upon arriving at the hospital he told officers he was going to run. Client was brought into the hospital and put in restraints. Client has a and two children. His family is concerned about the change in his behavior. Client had similar symptoms last winter. Assessment What has happened this shift: Client was in his room at the beginning of the shift, talking on the phone. Client appeared to be in a good mood, and stopped to introduce himself .Client came outside for snacks, and requested extra apple and cranberry juice with ice. Then at around 2300, patient sitting on edge of bed stating that he couldn't sleep. Offered to give him zyprexa, but then changed his mind stating that he could sleep, and became a little agitated stating "why do I need that ?" Client had a moment of agitation when he was trying to remove his contact lenses, but relaxed once a washcloth provided so that they wouldn't accidently lose them down the sink drain. Client slept maybe a total of 3-4 hrs, coming out of room requesting for snacks and juices. S/I, H/I: denies A/VH: denies Sleep: Slept 3-4 hrs ADL's: Independent Group attendance: Were Meds taken: Yes Any med S/E: None noted or reported. Mental Status Exam Appearance: Wearing personal clothing Eye contact: Good Behavior: Calm, guarded Speech: less pressured Mood: A&Ox3 calm - agitated Affect: congruent w/mood Thought process: tangential Thought Content: focused on the dose of each medication Cognition: A/Ox3 Insight: Improved (Fair) Judgment: Poor Interventions PRN's used: Nicotine lozenges Therapeutic interventions: Provided 1:1 assessment, therapeutic communication w/active listening, encouraged socializing w/peers and drawing or writing, medication administration/education/monitoring, Q 15 minute safety checks. Restraints/seclusion/emergency medication: N/A Justification of Continued Inpatient Treatment: Pt needs crisis interruption and medication adjustment and monitoring in a safe and therapeutic environment until stable to prevent harm to self or others or early readmission.
[2020-06-02 07:57] VITALS: BP 144/83
[2020-06-02] MEDS: pantoprazole 40mg Tablet.DR PO SCH ×2 (08:33→08:53)
[2020-06-02] MEDS: nicotine 14mg patch - 24hr TD SCH (08:34)
[2020-06-02] MEDS: hydrOXYzine 25 MG tablet PO SCH ×3 (08:34→20:59)
--- NOTE | 2020-06-02 10:00 | NUR ---
Group Therapy: Process Group This Clinicians goal for this process group were as follows: (1) Introduce and provide psychoeducation on Stokes ABC method. (2) Practice working through Stokes ABC method using examples provided by this Clinician. (3) Encourage Patients to process some of their own reoccurring situations utilizing Stokes ABC methodology. (4) Process Clients thoughts and reflections on this topic within the group milieu. Patient identified experiencing the following levels of anxiety, depression, and anger/irritability while present in the group milieu. Anxiety: 02/23 Depression: 10/26 Anger/irritability: 04/25 Patient presented as properly oriented x4 during the process group. Patient was dressed in nondescript, personal clothing that were appropriate within the milieu. Psychomotor activity was unremarkable. Patient's thought content was clear, and concrete. Patient's thought process was clear, coherent, and linear. This Clinician did not observe Patient responding to any internal stimuli during session. The rate, latency, and tone of Client's speech was within normal limits. Patient sustained regular eye contact with this Clinician when he spoke to him. Patient presented in calm euthymic mood, with congruent affect during the process group. Patient presented as open and cooperative, and was verbally engaged and nonobtrusive within the group milieu. Patient reported that he was feeling increased symptoms of irritability because of the change in weather (cloudly, rainy). On one occasion, during the discussion of identifying more helpful/balanced/rational beliefs to reduce unwanted emotional consequences, this Clinician asked Patient to identify a positive belief that he could identify about being a Patient at the [facility]. Patient responded that he was gaining appreciation of the importance of medications, and medication compliance as it relates to having stable mental health. Kris Mandel MA, VOLCANOLOGIST Addendum: 06/02/20 at 1141 by Kris Mandel SS Amended: Links added.
[2020-06-02] MEDS: propranolol 10mg tablet PO PRN (13:45)
--- NOTE | 2020-06-02 14:34 | NUR ---
Nursing Progress Note Legal hold: 5250 Client on involuntary status for GD Report received from LAURA Valero with use of SBAR. Why are they here: Client BIB [employer] for behaving irrationally. Client was found at 03:[address] of [address] running around in his underwear making nonsensical statements. Upon arriving at the hospital he told officers he was going to run. Client was brought into the hospital and put in restraints. Client has a and two children. His family is concerned about the change in his behavior. Client had similar symptoms last winter. Assessment What has happened this shift: Pt presents with Anxiety most of the time. He is constantly taking notes pacing and asking about how he is going to remain stable at home. He shared how much he desires to go home and to take his medications as prescribed without forgetting. Pt states at times he gets so busy that he will miss doses leading to his decline in Mental Health. S/I, H/I: denies A/VH: denies Sleep: Slept some in the AM ADL's: Independent Group attendance: Yes Were Meds taken: Yes Any med S/E: None noted or reported. Mental Status Exam Appearance: Wearing personal clothing Eye contact: Good Behavior: Calm, guarded, at times perseverates Speech: clear, audible, normal rate and rhythm Mood: less labile Affect: congruent w/mood Thought process: Circumstantial Thought Content: focused on taking his medications as ordered and discharge Cognition: A/Ox3 Insight: Improved (Fair) Judgment: Poor Interventions PRN's used: Nicotine lozenges, Propranolol for anxiety Therapeutic interventions: Provided 1:1 assessment, therapeutic communication w/active listening, encouraged socializing w/peers and drawing or writing, medication administration/education/monitoring, Q 15 minute safety checks. Restraints/seclusion/emergency medication: N/A Justification of Continued Inpatient Treatment: Pt needs crisis interruption and medication adjustment and monitoring in a safe and therapeutic environment until stable to prevent harm to self or others or early readmission.
--- NOTE | 2020-06-02 17:01 | NUR ---
User: Shereen Dias Date: 06/02/20 16:37 Type: Group Therapy Notes Type Art Tx Group Date Jun 02, 2020 Group Time 14:00 Group Focus Social and Emotional Art Expression Activity Goal Addressed Communication ad Self Esteem Dev/ID my Inner Perceptions & Self Talk Behavior Appropriate Affect Appropriate/Full Cognition Coherent / Logical Mood Stable Intervention Discussion Experiential Intervention Comment Morning Group Review and Emotional Pain Scale Rating Patients were provided with a guided relaxation to practice relaxation and stress management. Patient were then asked to select a picture from a pre-selection, Patients then were directed to color and complete a journaling exercise. Response Good Participation Response Comments Patient was able to engage fully in the activity. His themes expressed were "Love, Choice and [place]." Patient sat across from another patient whom he was appropriately interacting with. Patient also was able to listen and respond to his peers during the group process. Participations Level Active Teaching Method Discussion Experiential Goals Met Goals Met Shereen Dias MA, TRUCK LEASING MANAGER #[id number] Group Art Therapist, [facility] Addendum: 06/02/20 at 1703 by Shereen Dias Amended: Links added.
[2020-06-02 20:00] VITALS: BP 142/83
[2020-06-02] MEDS: quetiapine 100mg tablet PO SCH (20:59)
[2020-06-02] MEDS: LORazepam 1 MG tablet PO SCH (20:59)
[2020-06-02] MEDS: divalproex sod 250mg ER (24-hour) tablet PO SCH (20:59)
--- NOTE | 2020-06-03 01:33 | NUR ---
Nursing Progress Note: Legal hold: 5250 Client on involuntary status for GD Report received from LAURA Ko with use of SBAR. Why are they here: Client BIB [employer] for behaving irrationally. Client was found at 03:[address] of [address] running around in his underwear making nonsensical statements. Upon arriving at the hospital he told officers he was going to run. Client was brought into the hospital and put in restraints. Client has a and two children. His family is concerned about the change in his behavior. Client had similar symptoms last winter. Assessment What has happened this shift: The patient was seen at bedside for 1:1. Not having seen the patient for 5 days, he seems less anxious, paranoid, or labile. He appears to be more in control of his emotions. He was seen talking to his on the phone, and it appeared to be a good conversation. The patient reports that he believes he still has a job, and is looking forward to returning. He is sociable with other clients and staff, and is compliant with his medications, "they are working." Tonight, he spent time coloring instead of perseverating on his notes. The patient has some insight about his behavior, and is worried about what happens when he goes home. "Are they going to be scared of me?" The patient was compliant with medications, and went to bed soon after. He's only came out once when he went to the bathroom and found water on the floor. Engineering came and took a look, but found nothing wrong. he went back to bed, and is still sleeping. S/I, H/I: Denies A/VH: Denies Sleep: See sleep assessment ADL's: Independent Group attendance: No night group Were Meds taken: Yes Any med S/E: None reported or observed. Mental Status Exam Appearance: Well groomed man wearing his own appropriate clothes. Eye contact: Good Behavior: Calm, cooperative, little anxious at times. Speech: Clear Mood: "Not bad" Affect: Congruent to mood Thought process: Circumstantial Thought Content: Discharge, and seeing his and kids Cognition: A/Ox3 Insight: Improved (Fair) Judgment: Poor Interventions PRN's used: Nicotine lozenges. Therapeutic interventions: Provided 1:1 assessment, therapeutic communication w/active listening, encouraged socializing w/peers and drawing or writing, medication administration/education/monitoring, Q 15 minute safety checks. Restraints/seclusion/emergency medication: N/A Justification of Continued Inpatient Treatment: Pt needs crisis interruption and medication adjustment and monitoring in a safe and therapeutic environment until stable to prevent harm to self or others or readmission.
[2020-06-03 07:47] VITALS: BP 115/73
[2020-06-03] MEDS: hydrOXYzine 25 MG tablet PO SCH ×3 (08:07→20:20)
[2020-06-03] MEDS: pantoprazole 40mg Tablet.DR PO SCH (08:08)
[2020-06-03] MEDS: nicotine 14mg patch - 24hr TD SCH (08:11)
[2020-06-03] MEDS: NICOTINE POLACRILEX 2 MG LOZENGE BC PRN ×4 (08:23→19:21)
--- NOTE | 2020-06-03 10:00 | NUR ---
Group Therapy: Process Group This Clinicians goal for this process group were as follows: (1) Ask scaling questions about patients current anxiety, depression, and irritability symptoms as a check-in (2) Introduce and provide psychoeducation on distress tolerance skills. (2) Introduce the concept of radical acceptance and using our senses to self-soothe. (3) Share the acronym, GilbertE Activities; Contributing; Comparisons; Emotions; Pushing Away; Thoughts; and Sensations (4) Process Clients thoughts and reflections on this topic within the group milieu. Patient identified experiencing the following levels of anxiety, depression, and anger/irritability while present in the group milieu. Anxiety: 8/10 Depression: 0/10 Anger/irritability: 0/10 Patient presented as properly oriented x4 during the process group. Patient was dressed in nondescript, personal clothing that were appropriate within the milieu. Psychomotor activity was unremarkable. Patient's thought content was clear, and concrete. Patient's thought process was clear, coherent, and linear. This Clinician did not observe Patient responding to any internal stimuli during session. The rate, latency, and tone of Client's speech was within normal limits. Patient sustained regular eye contact with this Clinician when he spoke to him. Patient presented in calm mood that varied between euthymic (baseline) and dysphoric (mild irritability) mood, with congruent affect during the process group. Patient presented as open and cooperative, and was verbally engaged and nonobtrusive within the group milieu. Patient shared that he enjoys camping as an activity that he can engage in that helps him to calm down, even during situations that he cannot change. He was able to identify sensations that he could experience with all of his senses that could assist him in reducing the acuity of unwanted mental health symptoms. Kris Mandel MA, DEMOLITIONIST Addendum: 06/03/20 at 1137 by Kris Mandel Amended: Links added.
--- NOTE | 2020-06-03 15:11 | NUR ---
Nursing Progress Note: Legal hold: 5250 Client on involuntary status for GD Report received from LAURA Patel with use of SBAR. Why are they here: Client BIB [employer] for behaving irrationally. Client was found at 03:[address] of employment running around in his underwear making nonsensical statements. Upon arriving at the hospital he told officers he was going to run. Client was brought into the hospital and put in restraints. Client has a and two children. His family is concerned about the change in his behavior. Client had similar symptoms last winter. Assessment What has happened this shift: Pt denied depression/SI/HI/AH/VH. Pt denied anxiety though appeared anxious. Pt stated that he is "just waiting." Pt was cooperative with meds and unit procedures, he attended groups. Pt requested PRN nicotine lozenges X 3. Pt is anxiously awaiting speaking with the psychiatrist today as he states KAPIL Glynn told him he could go home today. S/I, H/I: Pt denies A/VH: Pt denies Sleep: Pt slept 4 hours last night per noc shift report. ADL's: Independent Group attendance: Yes Were Meds taken: Yes Any med S/E: None noted or reported. Mental Status Exam Appearance: Well groomed man with glasses and facial hair wearing his own clothing. Eye contact: Good Behavior: Pleasant, cooperative Speech: Clear Mood: "just waiting" Affect: Anxious Thought process: Linear Thought Content: Wants to go home to his family today. Cognition: A/O X 4 Insight: Fair Judgment: Fair Interventions PRN's used: Nicotine lozenges. Therapeutic interventions: Provided 1:1 assessment, therapeutic communication w/active listening, medication administration/education/monitoring, encouragement to attend groups, behavior monitoring, positive reinforcement, Q 15 minute safety checks. Restraints/seclusion/emergency medication: N/A Justification of Continued Inpatient Treatment: Pt needs crisis interruption and medication adjustment and monitoring in a safe and therapeutic environment until stable to prevent harm to self or others or readmission.
[2020-06-03 20:17] VITALS: BP 150/89
[2020-06-03] MEDS: quetiapine 100mg tablet PO SCH (20:18)
[2020-06-03] MEDS: divalproex sod 250mg ER (24-hour) tablet PO SCH (20:19)
[2020-06-03] MEDS: OLANZapine 2.5MG tablet PO PRN (20:20)
[2020-06-03] MEDS ORDERED: LORazepam 1 MG tablet PO SCH (21:00)
--- NOTE | 2020-06-04 00:09 | NUR ---
Nursing Progress Note: Legal hold: 5250 Client on involuntary status for GD Report received from LAURA Whitman with use of SBAR. Why are they here: Client BIB [employer] for behaving irrationally. Client was found at 03:[address] of employment running around in his underwear making nonsensical statements. Upon arriving at the hospital he told officers he was going to run. Client was brought into the hospital and put in restraints. Client has a and two children. His family is concerned about the change in his behavior. Client had similar symptoms last winter. Assessment What has happened this shift: The patient was seen at bedside for 1:1. He states that he is upset that he is still here. He says that he was all packed and ready to go, but he's still here. He only slept a few hours last night, but states that he slept more. He has been educated about the importance of sleeping well. His and kids already fear him...He can not go home and just bounce around the house all night. The patient also seems to still have some paranoia. As we talked, the patient stated that he thought that people listen in on phone conversations. The fact that the phone numbers from all previous calls were on the phone also bothered him. He made no mention of his and kids leaving, so maybe he doesn't know. He will be devastated. The patient requested PRN Zyprexa, "so I can sleep all night." S/I, H/I: Denies A/VH: Denies Sleep: See sleep assessment ADL's: Independent Group attendance: No night group Were Meds taken: Yes Any med S/E: None reported or observed. Mental Status Exam Appearance: Well groomed man wearing his own appropriate clothes. Eye contact: Good Behavior: Calm, cooperative, guarded, paranoid, little anxious at times. Speech: Clear Mood: Depressed Affect: Congruent to mood Thought process: Circumstantial Thought Content: Discharge, and seeing his and kids Cognition: A/Ox3 Insight: Improved (Fair) Judgment: Poor Interventions PRN's used: Nicotine lozenges, Zyprexa. Therapeutic interventions: Provided 1:1 assessment, therapeutic communication w/active listening, encouraged socializing w/peers and drawing or writing, medication administration/education/monitoring, Q 15 minute safety checks. Restraints/seclusion/emergency medication: N/A Justification of Continued Inpatient Treatment: Pt needs crisis interruption and medication adjustment and monitoring in a safe and therapeutic environment until stable to prevent harm to self or others or readmission.
[2020-06-04 07:32] VITALS: BP 122/60
[2020-06-04] MEDS: pantoprazole 40mg Tablet.DR PO SCH (07:47)
[2020-06-04] MEDS: NICOTINE POLACRILEX 2 MG LOZENGE BC PRN ×2 (07:47→12:17)
[2020-06-04] MEDS: nicotine 14mg patch - 24hr TD SCH (07:47)
[2020-06-04] MEDS: hydrOXYzine 25 MG tablet PO SCH ×2 (07:47→15:11)
--- NOTE | 2020-06-04 10:00 | NUR ---
Group Therapy: Process Group This Clinicians goal for this process group were as follows: (1) Ask scaling questions about Patients current anxiety, depression, and irritability symptoms as a check-in. (2) Provide psychoeducation on differences between passive, passive-aggressive, assertive, and aggressive forms of communication. (3) Provide psychoeducation on fair fighting rules to illustrate principles of assertive communication. (4) Process Patients thoughts and reflections on this topic within the group milieu. Patient identified experiencing the following levels of anxiety, depression, and anger/irritability while present in the group milieu. Anxiety: 3/10 Depression: 1/10 Anger/irritability: 0/10 Patient presented as properly oriented x4 during the process group. Patient was dressed in nondescript, personal clothing that were appropriate within the milieu. Psychomotor activity was unremarkable. Patient's thought content was clear, and concrete. Patient's thought process was clear, coherent, and linear. This Clinician did not observe Patient responding to any internal stimuli during session. The rate, latency, and tone of Client's speech was within normal limits. Patient sustained intermittent eye contact with this Clinician during the process group. Patient presented in calm mood during the process group. Though Patient reported that his anxiety, and depression symptoms were relatively low (anxiety 3/10, depression 1/10), it is this Clinician's impression that his affect appeared incongruent as evidenced by a "scowl" on his face, though he presented as calm within the milieu. Patient presented as open and cooperative, and was verbally engaged and nonobtrusive within the group milieu. Patient endorsed his efforts to be an assertive communicator, acknowledging that when he is passive about his negative thoughts and feelings they "Build up," inside him, which occasionally leads to greater conflict in the future when he does not share his thoughts and feelings assertively in the moment. Kris Mandel MA, MASSEUR/MASSEUSE Addendum: 06/04/20 at 1139 by Kris Mandel Amended: Links added.
[2020-06-04] MEDS ORDERED: QUET200T30 PO (11:14)
[2020-06-04] MEDS ORDERED: OLAN10TA19 PO (11:14)
[2020-06-04] MEDS ORDERED: DIVA500T9 PO (11:14)
[2020-06-04] MEDS ORDERED: PANT40TA4 PO (11:14)
[2020-06-04] MEDS ORDERED: NICO-668 BC (11:14)
[2020-06-04] MEDS ORDERED: HYDR50TA65 PO ×2 (11:14)
[2020-06-04] MEDS ORDERED: LORA-268 PO ×2 (11:14→12:24)
--- NOTE | 2020-06-04 15:48 | NUR ---
ncqa specialist Note: Patient given discharge instructions. Patient verbalized understanding. Patient's medications were called into patient's local pharmacy by JONE Villegas. Patient denies suicidal ideation. Patient denies audio/visual hallucinations. Patient also denying depression. Patient is happy that his is going to pick him up and driving him home. Patient ambulatory, steady gait with all his belonging with Tech Ed walking him to the main lobby where his is picking him up.
== END 2020-06-04 15:48 | disposition home or self-care (01) | DRG 885 ==
LOC: ADULT MH 21:40
PROVIDERS: ADMIT Psychiatry & Neurology Psychiatry; ATTEND Psychiatry & Neurology Psychiatry
DX: F31.5 Bipolar disorder, current episode depressed, severe, with psychotic features (principal); E11.9 Type 2 diabetes mellitus without complications; F17.210 Nicotine dependence, cigarettes, uncomplicated; F41.9 Anxiety disorder, unspecified; G47.00 Insomnia, unspecified; I10 Essential (primary) hypertension; Z79.899 Other long term (current) drug therapy
CPT/HCPCS: 36415; 80061; 80164; 83036; 84439; 84481; 87081; Q0177

== ENCOUNTER 2020-10-01 22:38 | Emergency (ER) | payer MEDICAID, OTHER ==
[~2020-10-01] VITALS: Ht 170.2 cm; Wt 90.9 kg
[~2020-10-01 22:38] MED LIST changes: +LORA-268 PO; +NICO-668 BC; +OLAN10TA19 PO; -OMEP-50 PO; +PANT40TA54 PO; -PROP10TA10 PO; -QUET-1 PO; +QUET200T30 PO; -VENL37.589 PO
[2020-10-02] MEDS ORDERED: LORazepam 1 MG tablet PO ONE
[2020-10-02 00:29] LABS: BASOPHILS % (AUTO) 0.3 % (0-1); EOSINOPHILS % (AUTO) 0.1 % (0-6); HEMATOCRIT 48.3 % (42.0-52.0); HEMOGLOBIN 16.6 g/dl (14.0-17.9); LYMPHOCYTES # (AUTO) 1.6 X10'3 (1.1-4.8); LYMPHOCYTES % (AUTO) 9.9 % (21-51); MEAN CORPUSCULAR HEMOGLOBIN 30.4 PG (27.0-31.0); MEAN CORPUSCULAR HGB CONC 34.4 g/dL (33.0-36.5); MEAN CORPUSCULAR VOLUME 88.4 FL (78-98); MEAN PLATELET VOLUME 6.4 FL (7.4-10.4); MONOCYTES # (AUTO) 1.4 X10'3 (0-0.9); NEUTROPHILS # (AUTO) 12.8 X10'3 (1.8-7.7); NEUTROPHILS % (AUTO) 80.7 % (42-75); PLATELET COUNT 267 X10'3 (140-440); RED BLOOD COUNT 5.47 X10'6 (4.70-6.10); RED CELL DISTRIBUTION WIDTH 13.3 % (11.5-14.5); WHITE BLOOD COUNT 15.8 X10'3 (4.5-11.0)
[2020-10-02 00:43] LABS: ALANINE AMINOTRANSFERASE 29 U/L (12-78); ALBUMIN 4.1 G/DL (3.4-5.0); ALKALINE PHOSPHATASE 69 IU/L (46-116); ANION GAP 14 (8-16); ASPARTATE AMINO TRANSFERASE 13 U/L (10-37); BILIRUBIN,TOTAL 0.4 MG/DL (0.1-1.0); BLOOD UREA NITROGEN 24 MG/DL (7-18); BUN/CREATININE RATIO 17.8 (5.4-32.0); CALCIUM 9.7 MG/DL (8.5-10.1); CHLORIDE 100 MMOL/L (99-107); CREATININE 1.35 MG/DL (0.60-1.10); ETHANOL < 0.010 GM/DL (0.0-0.010); GLUCOSE 161 MG/DL (70-104); SODIUM 138 MMOL/L (135-145); TOTAL PROTEIN 8.2 G/DL (6.4-8.2); eGFR 62 ML/MIN
[2020-10-02] MEDS ORDERED: dicyclomine 10mg/ml 2ml ampule IM ONE (00:45)
[2020-10-02 00:48] LABS: CLARITY,URINE CLEAR (Clear); COLOR,URINE YELLOW (Yellow); GLUCOSE, URINE NEGATIVE (Neg); KETONES,URINE TRACE mg/dl (Neg); LEUKOCYTE ESTERASE ,URINE NEGATIVE (Neg); NITRITES, URINE NEGATIVE (Neg); OCCULT BLOOD,URINE NEGATIVE (Neg); PROTEIN,URINE 100 mg/dl (Neg)
[2020-10-02 00:49] LABS: UA COLLECTION TYPE VOIDED
[2020-10-02 00:53] LABS: BACTERIA,URINE FEW /HPF (Neg); MUCUS STRANDS MODERATE /LPF (Neg); RBC,URINE NONE SEEN /HPF (0-2); SQUAMOUS EPITHELIAL CELL,UR FEW /LPF (FEW); WBC,URINE 0-4 /HPF (0-4)
[2020-10-02 00:58] LABS: URINE AMPHETAMINE SCREEN NEGATIVE (Neg); URINE BARBITUATE SCREEN NEGATIVE (Neg); URINE BENZODIAZEPINES SCREEN NEGATIVE (Neg); URINE CANNABINOID SCREEN POSITIVE (Neg); URINE COCAINE SCREEN POSITIVE (Neg); URINE METHADONE SCREEN NEGATIVE (Neg); URINE OPIATE SCREEN NEGATIVE (Neg); URINE PHENCYCLIDINE SCREEN NEGATIVE (Neg)
[2020-10-02] MEDS ORDERED: mag hydrox/Alum hydrox/simeth 30ml oral suspension PO ONE (01:20)
[2020-10-02] MEDS ORDERED: LIDOcaine Viscous 15ml cup MM ONE (01:20)
[2020-10-02] MEDS ORDERED: famotidine 20mg tablet PO ONE (01:20)
[2020-10-02] MEDS ORDERED: ondansetron 4mg rapidly disintigrating tab PO STA (02:39)
[2020-10-02] MEDS ORDERED: proCHLORperazine 10 MG/2 ml inj IM ONE (03:05)
[2020-10-02] MEDS ORDERED: haloperidol lactate 5mg/ml inj IM ONE (04:45)
[2020-10-02] MEDS ORDERED: nicotine 21mg patch - 24 hr TD ONE (05:40)
--- NOTE | 2020-10-02 05:59 | NUR ---
A little bit ago the patient started coughing. I asked him about it. He said he has been coughing for 3 days and had a covid swab done yesterday at the clinic MD made aware and a covid swab was sent and a cxr ordered.
--- NOTE | 2020-10-02 06:30 | NUR ---
Pt sleeping. Respirations unlabored. NAD
--- NOTE | 2020-10-02 07:30 | NUR ---
Pt sleeping. Respirations unlabored. NAD
[2020-10-02 08:30] VITALS: BP 144/88
--- NOTE | 2020-10-02 08:31 | NUR ---
Pt states that his stomach still hurts, let him know he could have Maalox. Pt also asking about his morning meds of Hydroxizine.
[2020-10-02] MEDS ORDERED: hydrOXYzine 25 MG tablet PO ONE ×2 (08:40)
[2020-10-02] MEDS: mag hydrox/Alum hydrox/simeth 30ml oral suspension PO PRN ×2 (08:51→14:18)
--- NOTE | 2020-10-02 10:29 | NUR ---
Let pt know that we are waiting for him to be evaluated by [facility]. Pt denies any needs at this time.
--- NOTE | 2020-10-02 11:23 | NUR ---
Pt sleeping. Respirations unlabored. NAD
--- NOTE | 2020-10-02 11:45 | NUR ---
Pt walked over from ER main to bed 23 accompanied by RN.
[2020-10-02] MEDS ORDERED: HYDR50TA65 PO (12:33)
[2020-10-02] MEDS ORDERED: DIVA500T4 PO (12:46)
[2020-10-02] MEDS ORDERED: PRED5TAB PO (12:46)
[2020-10-02] MEDS ORDERED: AZIT250T2 PO (12:46)
[2020-10-02] MEDS ORDERED: HYDR-3686 PO (12:46)
[2020-10-02] MEDS ORDERED: PANT20TA18 PO (12:47)
[2020-10-02] MEDS ORDERED: QUET200T PO (12:57)
[2020-10-02] MEDS ORDERED: NICO-731 TOP (13:22)
[2020-10-02] MEDS ORDERED: NICOTINE POLACRILEX 2 MG LOZENGE BC PRN (13:25)
[2020-10-02] MEDS ORDERED: hydrOXYzine 25 MG tablet PO PRN (13:25)
--- NOTE | 2020-10-02 13:45 | NUR ---
Pt is lying in bed, appears to be sleeping.
--- NOTE | 2020-10-02 14:19 | NUR ---
Medicated pt with prn Maalox for stomach discomfort and PRN Atarax 50mg for c/o increased anxiety.
[2020-10-02] MEDS ORDERED: azithromycin 250mg tablet PO ONE (14:25)
--- NOTE | 2020-10-02 14:27 | NUR ---
Pt was prescribed PO ABX Zithromax (Z-pack) and PO Prednisone 20 mg BID X 5 days yesterday at [facility] for Bronchitis. Pt took his first dose of Zithromax last night. He was to start the Prednisone today but did not take it this morning.
--- NOTE | 2020-10-02 14:33 | NUR ---
Pt reported that he missed his meds X 3 days because his forgot to help him with them which she usually does. He states he was feeling suicidal last night because he felt so anxious and terrible. Pt denies SI today.
--- NOTE | 2020-10-02 14:46 | NUR ---
[facility] just finished evaluating the patient.
--- NOTE | 2020-10-02 15:24 | NUR ---
[facility] has decided pt does not meet hold criteria. He is being discharged, his will be picking him up shortly.
--- NOTE | 2020-10-02 15:40 | NUR ---
Pt discharged home.
[2020-10-02] MEDS ORDERED: predniSONE 20 mg tablet PO SCH (20:00)
[2020-10-02] MEDS ORDERED: divalproex sod 250mg ER (24-hour) tablet PO SCH (21:00)
[2020-10-02] MEDS ORDERED: quetiapine 100mg tablet PO SCH (21:00)
[2020-10-03] MEDS ORDERED: nicotine 14mg patch - 24hr TD SCH (08:00)
[2020-10-03] MEDS ORDERED: azithromycin 250mg tablet PO SCH (08:00)
[2020-10-03] MEDS ORDERED: pantoprazole 40mg Tablet.DR PO SCH (08:00)
== END 2020-10-02 15:40 | disposition home or self-care (01) ==
LOC: ER 22:39
DX: R45.851 Suicidal ideations (principal); R10.84 Generalized abdominal pain; K59.00 Constipation, unspecified; Z20.828 Contact with and (suspected) exposure to other viral communicable diseases; Z79.2 Long term (current) use of antibiotics; Z79.899 Other long term (current) drug therapy
CPT/HCPCS: 36415; 71045; 74018; 74176; 80053; 80305; 80320; 81001; 85025; 87635; 96372; 99285; C9803; J0500; J0780; J1630; Q0177

== ENCOUNTER 2021-05-11 19:29 | Emergency (ER) | payer MEDICAID ==
[~2021-05-11 19:29] MED LIST changes: +AZIT250T2 PO; +DIVA500T4 PO; +HYDR-3686 PO; -HYDR50TA65 PO; -LORA-268 PO; +NICO-731 TOP; -OLAN10TA19 PO; +PANT20TA18 PO; -PANT40TA54 PO; +PRED5TAB PO; +QUET200T PO; -QUET200T30 PO
== END 2021-05-11 21:55 | disposition left against medical advice (07) ==
LOC: ER 19:29
DX: F41.9 Anxiety disorder, unspecified (principal); Z53.21 Procedure and treatment not carried out due to patient leaving prior to being seen by health care provider

== ENCOUNTER 2022-06-11 14:42 | Emergency (ER) | payer MEDICAID ==
[~2022-06-11] VITALS: Ht 170.2 cm; Wt 73.6 kg
[2022-06-11] MEDS ORDERED: RISP2TAB85 PO (15:25)
[2022-06-11] MEDS ORDERED: [UNRECOGNIZED DRUG - CODE] (15:28)
[2022-06-11] MEDS ORDERED: NICO-668 MM (15:31)
[2022-06-11 15:36] LABS: BASOPHILS % (AUTO) 0.4 % (0-1); EOSINOPHILS # (AUTO) 0.2 X10'3 (0-0.9); EOSINOPHILS % (AUTO) 1.9 % (0-6); HEMATOCRIT 46.7 % (42.0-52.0); HEMOGLOBIN 15.8 g/dl (14.0-17.9); LYMPHOCYTES # (AUTO) 2.9 X10'3 (1.1-4.8); LYMPHOCYTES % (AUTO) 24.2 % (21-51); MEAN CORPUSCULAR HEMOGLOBIN 31.6 PG (27.0-31.0); MEAN CORPUSCULAR HGB CONC 33.9 g/dL (33.0-36.5); MEAN CORPUSCULAR VOLUME 93.2 FL (78-98); MONOCYTES # (AUTO) 1.3 X10'3 (0-0.9); MONOCYTES % (AUTO) 11.1 % (2-12); NEUTROPHILS # (AUTO) 7.4 X10'3 (1.8-7.7); NEUTROPHILS % (AUTO) 62.4 % (42-75); PLATELET COUNT 276 X10'3 (140-440); RED BLOOD COUNT 5.01 X10'6 (4.70-6.10); RED CELL DISTRIBUTION WIDTH 13.3 % (11.5-14.5); WHITE BLOOD COUNT 11.9 X10'3 (4.5-11.0)
[2022-06-11 15:36] LABS: CLARITY,URINE CLEAR (Clear); GLUCOSE, URINE NEGATIVE (Neg); KETONES,URINE NEGATIVE (Neg); LEUKOCYTE ESTERASE ,URINE NEGATIVE (Neg); NITRITES, URINE NEGATIVE (Neg); OCCULT BLOOD,URINE NEGATIVE (Neg); PROTEIN,URINE NEGATIVE (Neg); UROBILINOGEN,URINE 0.2 E.U/dL (0.2-1.0)
[2022-06-11 15:39] LABS: UA COLLECTION TYPE CLN CATCH MIDSTREAM
[2022-06-11 15:40] LABS: COLOR,URINE Colorless (Yellow); URINE AMPHETAMINE SCREEN NEGATIVE (Neg); URINE BARBITUATE SCREEN NEGATIVE (Neg); URINE BENZODIAZEPINES SCREEN NEGATIVE (Neg); URINE CANNABINOID SCREEN POSITIVE (Neg); URINE COCAINE SCREEN POSITIVE (Neg); URINE METHADONE SCREEN NEGATIVE (Neg); URINE OPIATE SCREEN NEGATIVE (Neg); URINE PHENCYCLIDINE SCREEN NEGATIVE (Neg)
[2022-06-11 15:45] LABS: ALANINE AMINOTRANSFERASE 19 U/L (12-78); ALBUMIN/GLOBULIN RATIO 1.2 (1.1-1.5); ALKALINE PHOSPHATASE 68 IU/L (46-116); ANION GAP 7 (8-16); ASPARTATE AMINO TRANSFERASE 18 U/L (10-37); BILIRUBIN,TOTAL 0.5 MG/DL (0.1-1.0); BLOOD UREA NITROGEN 9 MG/DL (7-18); BUN/CREATININE RATIO 11.1 (5.4-32.0); CALCIUM 8.7 MG/DL (8.5-10.1); CHLORIDE 104 MMOL/L (99-107); CREATININE 0.81 MG/DL (0.60-1.10); GLUCOSE 118 MG/DL (70-104); POTASSIUM 3.7 MMOL/L (3.5-5.1); SODIUM 138 MMOL/L (135-145); TOTAL CARBON DIOXIDE 27.1 MMOL/L (24-32); TOTAL PROTEIN 7.3 G/DL (6.4-8.2); eGFR > 90 ML/MIN
[2022-06-11] MEDS ORDERED: LORazepam 2 mg/ml vial IM ONE (15:55)
[2022-06-11] MEDS ORDERED: diphenhydrAMINE 50 mg/ml inj IM ONE (15:55)
[2022-06-11 15:58] LABS: ETHANOL < 0.010 GM/DL (0.0-0.010)
--- NOTE | 2022-06-11 16:06 | NUR ---
PT ESCALATING, YELLING, PACING THE ROOM. STATES," I WANT TO LEAVE, I JUST NEED TO GET OUT OF HERE." INFORMED KAPIL RUANO. PLEASE SEE NEW ORDERS.
--- NOTE | 2022-06-11 16:20 | NUR ---
PT HAVING ANOTHER OUTBURST WITH VULGAR LANGUAGE, SECURITY AT BEDSIDE.
[2022-06-11] MEDS ORDERED: LORazepam 2 mg/ml vial IM STA (21:11)
[2022-06-11] MEDS ORDERED: haloperidol lactate 5mg/ml inj IM STA (21:11)
[2022-06-11] MEDS ORDERED: haloperidol lactate 5mg/ml inj ONE ×2 (21:17)
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
--- NOTE | 2022-06-12 00:30 | NUR ---
Pt appears to be sleeping. Restraints removed.
--- NOTE | 2022-06-12 02:25 | NUR ---
Patient awake stumbling about room, into [place]. Pt appears disoriented and unsteady. Multiple attempts made to have patient lie in bed and rest. Pt continues to leave the bed and wander about his room with unsteady movements. Pt placed in restraints for safety until pt demonstrates coordination to move about room safely.
--- NOTE | 2022-06-12 04:29 | NUR ---
Patient in restraints, sits up on the gurney and starts shouting obsceneties. Attempt was made to reorient patient who started yelling about needing to find his dog. Pt offered ice water and warm blanket. After being given a blanket, patient began crying and wiping his eyes. Eyes are noted to be swollen and red, patient refuses to open them. Other staff members noted that through the shift, patient has been rubbing and wiping his eyes frequently, and they appear to be swollen. notified.
[2022-06-12] MEDS: polymyxin B sulf/tmp ophth drops 10ml EACHEYE SCH ×5 (04:30→21:00)
--- NOTE | 2022-06-12 05:50 | NUR ---
Administered abx eye drops to patient eyes per md order. Eyes, particularly the right, are red, swollen and have purulent discharge. Pt asked for and received a warm wash cloth to put over his eyes.
[2022-06-12] MEDS ORDERED: LORazepam 1 MG tablet PO ONE (06:50)
--- NOTE | 2022-06-12 07:00 | NUR ---
PT IS HAVING LOUD OUTBURST AND THEN WILL FALL BACK TO SLEEP.
--- NOTE | 2022-06-12 07:45 | NUR ---
restraints removed. pt calm and cooperative at this time.
[2022-06-12] MEDS ORDERED: nicotine 21mg patch - 24 hr TD ONE (08:00)
[2022-06-12] MEDS ORDERED: haloperidol lactate 5mg/ml inj IM ONE (10:35)
[2022-06-12] MEDS ORDERED: diphenhydrAMINE 50 mg/ml inj IV ONE (10:35)
--- NOTE | 2022-06-12 10:35 | NUR ---
PT YELLING AND TRYING TO LEAVE ROOM, VULGAR LANGUAGE TOWARDS MUNIR MATTHEW PA. PLEASE SEE NEW ORDERS.
[2022-06-12] MEDS ORDERED: ziprasidone IM 20mg inj **IM only IM ONE (11:25)
--- NOTE | 2022-06-12 12:04 | NUR ---
DR HULL FROM [facility] HERE TO REVIEW PT'S CHART FOR MEDICATIONS
[2022-06-12] MEDS: LORazepam 1 MG tablet PO SCH ×2 (13:00→21:00)
[2022-06-12] MEDS: valproate sod 250mg/5ml UD oral syrup PO SCH ×2 (13:00→22:15)
[2022-06-12] MEDS: risperiDONE 2mg tablet PO SCH ×2 (13:00→21:00)
--- NOTE | 2022-06-12 13:00 | NUR ---
PLACED MED ORDERS. MEDICATION WILL BE HELD UNTIL PT BECOMES MORE AWAKE AND ALERT. PT IS DROUSY AT THIS TIME AND NOT APPROPRIATE FOR PO MEDICATION ADMINISTRATION. DR. PEÑALOZA AT BEDSIDE AND AGREES WITH PLAN TO ADMINISTER MEDICATION AFTER PT IS AWAKE/ALERT.
--- NOTE | 2022-06-12 13:06 | NUR ---
BILATERAL ANKLE RESTRAINTS RELEASED
--- NOTE | 2022-06-12 16:27 | NUR ---
PT IS AWAKE AND QUIET. RESTRAINTS REMOVED SO THAT HE CAN USE THE URINAL AND EAT HIS LUNCH. PT'S LUNCH WAS WARMED AND DELIVERED. PT PUSHED HIS LUNCH TRAY ONTO THE FLOOR.
--- NOTE | 2022-06-12 17:15 | NUR ---
PT'S GURNEY WAS REMOVED FROM THE ROOM AFTER TELLING PT MULTIPLE TIMES TO NOT STAND ON THE GURNEY WHILE TRYING TO CLIME UP THE ROOM PORTILLO. MATTRESS, PILLOW AND BLANKES WERE PLACED ON THE FLOOR. .
--- NOTE | 2022-06-12 17:56 | NUR ---
PT SLEEPING QUIETLY
--- NOTE | 2022-06-12 18:45 | NUR ---
PT IS UP NEXT TO DOORS PUSHING ON THE DOORS. PT INSTRUCTED TO STEP AWAY FROM DOORS. CONTINUES TO MAKE GESTURES WITH ARMS AND HANDS AND IS ASKING FOR HIS PHONE. PT INFORMED THAT WE DO NOT HAVE HIS PHONE.
--- NOTE | 2022-06-12 19:15 | NUR ---
PT GIVEN FOOD TRAY AND HELPED WITH FOOD. PT ATE ABOUT 4-5 BITES OF FOOD AND THEN DUMPED THE REST ON THE FLOOR. TRAY TAKEN FROM ROOM. PT LAYS BACK AND ALLOWS ADMINISTRATION OF EYE DROPS WITHOUT ISSUES.
--- NOTE | 2022-06-12 20:40 | NUR ---
PT CONTINUES TO WALK AROUND ROOM AND TRY TO CLIMB PORTILLO / LEAN ON DOORS. PT WAS OFFERED WATER AND URINAL BUT REFUSED BOTH. PT AGREEABLE TO TAKING HIS MEDS.
--- NOTE | 2022-06-13 00:29 | NUR ---
PT LAYING ON MAT ON FLOOR FOR SHORT PERIODS. PT GIVEN A WARM BLANKET. PT CONTINUES TO TRY TO WALK OUT OF THE ROOM WITH EYES CLOSED. REDIRECTS AND GOES BACK INTO ROOM WITH COAXING.
[2022-06-13] MEDS ORDERED: haloperidol lactate 5mg/ml inj IM ONE (00:45)
--- NOTE | 2022-06-13 01:57 | NUR ---
pt laying on mat on left side with eyes closed. Pt. breathing even and non-labored.
--- NOTE | 2022-06-13 07:00 | NUR ---
Patient brought from main ER. He is delusional, his behavior is labile, he is disoriented and loud.
[2022-06-13] MEDS ORDERED: diazepam 5mg tablet PO ONE (07:45)
[2022-06-13] MEDS ORDERED: haloperidol 5mg tablet PO ONE (07:45)
[2022-06-13] MEDS ORDERED: diphenhydrAMINE 25mg capsule PO ONE (07:45)
--- NOTE | 2022-06-13 07:50 | NUR ---
Dr. Chowdary consulted. Orders for Haldol, Benadryl, and Diazepam were given. Patient did cooperate with taking meds.
[2022-06-13] MEDS: polymyxin B sulf/tmp ophth drops 10ml EACHEYE SCH ×4 (08:31→20:27)
[2022-06-13] MEDS: risperiDONE 2mg tablet PO SCH ×2 (08:31→20:19)
[2022-06-13] MEDS: valproate sod 250mg/5ml UD oral syrup PO SCH (08:34)
[2022-06-13] MEDS: LORazepam 1 MG tablet PO SCH ×2 (08:54→20:19)
[2022-06-13 09:04] VITALS: BP 112/81
--- NOTE | 2022-06-13 09:30 | NUR ---
Patient is becoming somewhat more cooperative. Direct observation. Precautions in place for potential violent behavior.
--- NOTE | 2022-06-13 10:25 | NUR ---
Patient is sleeping quietly in a mid fowlers position. He exhibits light snoring.
--- NOTE | 2022-06-13 10:46 | NUR ---
Patient is sleeping quietly, no distress noted. Patient has self repositioned.
[2022-06-13] MEDS ORDERED: quetiapine 100mg tablet PO PRN (11:40)
--- NOTE | 2022-06-13 11:43 | NUR ---
Patient sleeps quietly, he has covered self with blanket.
[2022-06-13] MEDS ORDERED: divalproex sod 250mg ER (24-hour) tablet PO ONE (12:08)
--- NOTE | 2022-06-13 13:04 | NUR ---
Patient is sleeping quietly. No distress. Light snoring noted. Patient has self repositioned in bed.
--- NOTE | 2022-06-13 14:45 | NUR ---
Patient let out a prolonged howl, yet, he remaind sleeping.
--- NOTE | 2022-06-13 15:40 | NUR ---
Patient is now sleeping on his right side. [facility] is here. A new 5150 will be written.
--- NOTE | 2022-06-13 18:15 | NUR ---
Received report from LAURA Lopez. Patient sitting up in bed, appears to be slightly restless.
[2022-06-13] MEDS: divalproex sod 250mg ER (24-hour) tablet PO SCH (20:19)
--- NOTE | 2022-06-13 20:20 | NUR ---
Patient seen pacing in room, took all night time medications without hesitation.
--- NOTE | 2022-06-13 21:50 | NUR ---
Patient up and pacing in the room, taking clothes off and putting it back on upon reminding him. Advised patient to stay in bed, patient verbalized understanding.
--- NOTE | 2022-06-13 22:10 | NUR ---
Patient pacing in the room, taking clothes off and not following directions. Getting more agitated and aggressive. ER MD notified. Received one time order of IM Benadryl 50mg and Geodon 20mg.
[2022-06-13] MEDS ORDERED: diphenhydrAMINE 50 mg/ml inj IM ONE (22:15)
[2022-06-13] MEDS ORDERED: ziprasidone IM 20mg inj **IM only IM ONE (22:15)
--- NOTE | 2022-06-13 22:28 | NUR ---
PCT and psychiatric orderly at bedside, deescalating patient. Administered IM medications per MD order. Patient now laying in bed with eyes closed.
--- NOTE | 2022-06-13 22:55 | NUR ---
Patient up and pacing the room again. Asked for a urinal, given but urinated on the floor anyway. Patient back in bed now.
[2022-06-14] MEDS ORDERED: traZODone 50mg tablet PO STA (00:52)
--- NOTE | 2022-06-14 00:55 | NUR ---
Patient up and moving mattress around, taking clothes off, and not following directions. PCT at bedside attempting to get patient to get dressed and sit or lay in bed. Patient now clothed. Still up and walking around in room with eyes closed. PCT at his side.
--- NOTE | 2022-06-14 01:05 | NUR ---
ER MD notified of patient's activities/behavior. Received one time order of sleep aid. Administered medication as ordered. Patient now resting in bed, comfortably.
[2022-06-14] MEDS: nicotine 7mg patch - 24hr TD SCH ×2 (04:13→08:29)
[2022-06-14] MEDS ORDERED: MIDAZolam 5mg/ml 2ml vial IM ONE ×2 (04:25→04:35)
--- NOTE | 2022-06-14 04:50 | NUR ---
PT BECAME VERBALLY AGRESSIVE TRYING TO LEAVE ROOM. TRIED TO REDIRECT PT AND ATTEMPTS WERE UNSUCCESSFUL. PT THEN BECAME PHYSICALLY AGRESSIVE WITH STAFF. ORDERS FOR MEDICATION GIVEN FROM ER MD.
--- NOTE | 2022-06-14 06:15 | NUR ---
Pt woke up, refused V/S, ripped off EKG cords. IW appeared to be having visual and auditory hallucinations AEB muttering to self. IW is irritable, however directable at this time. Sitting outside of the door right now to keep patient safe. Staff will check in in an hour for further assessment.
--- NOTE | 2022-06-14 07:15 | NUR ---
RN assessed pt, slurred speech, tangential, difficult to understand pt. RN was able to take V/S, pt is re-diretable.
[2022-06-14] MEDS ORDERED: ziprasidone IM 20mg inj **IM only IM ONE (07:55)
--- NOTE | 2022-06-14 08:20 | NUR ---
Pt's speech is less slurred, he stated that he was slurring because he was sleepy. Still tangential, has pressured speech. Follows command, compliant with medication regiment.
[2022-06-14] MEDS: polymyxin B sulf/tmp ophth drops 10ml EACHEYE SCH ×2 (08:26→13:00)
[2022-06-14] MEDS: LORazepam 1 MG tablet PO SCH (08:26)
[2022-06-14] MEDS: risperiDONE 2mg tablet PO SCH (08:27)
[2022-06-14] MEDS: divalproex sod 250mg ER (24-hour) tablet PO SCH (08:29)
[2022-06-14] MEDS ORDERED: LORazepam 1 MG tablet PO PRN (09:10)
--- NOTE | 2022-06-14 09:10 | NUR ---
Pt escalated, screaming at staff. He did not need any intervention, stayed inside of the room, and calmed down on his own.
--- NOTE | 2022-06-14 10:23 | NUR ---
Pt has been sleeping, sitter outside of room. No issue noted
--- NOTE | 2022-06-14 15:09 | NUR ---
Pt woke from a nap. Told pt that his mother had attempted to call for an update earlier today. He stated at this time, he did not want information shared with his mother "until I talk to her".
== END 2022-06-14 17:13 ==
LOC: ER 14:42
DX: F29 Unspecified psychosis not due to a substance or known physiological condition (principal); Z20.822 Contact with and (suspected) exposure to COVID-19; F14.10 Cocaine abuse, uncomplicated
CPT/HCPCS: 36415; 80053; 80305; 80320; 81003; 82948; 84443; 85025; 87811; 96372; 96374; 99285; J1200; J1630; J2060; J2250; J3486

== ENCOUNTER 2022-08-05 18:04 | Emergency (ER) | payer MEDICAID ==
[~2022-08-05] VITALS: Ht 170.2 cm; Wt 74.0 kg
[~2022-08-05 18:04] MED LIST changes: -AZIT250T2 PO; -DIVA500T4 PO; -HYDR-3686 PO; -NICO-668 BC; +NICO-668 MM; -NICO-731 TOP; -PANT20TA18 PO; -PRED5TAB PO; -QUET200T PO; +RISP2TAB85 PO; +[UNRECOGNIZED DRUG - CODE]
[2022-08-05 20:11] LABS: BASOPHILS % (AUTO) 0.3 % (0-1); EOSINOPHILS # (AUTO) 0.2 X10'3 (0-0.9); EOSINOPHILS % (AUTO) 1.6 % (0-6); HEMATOCRIT 40.7 % (42.0-52.0); HEMOGLOBIN 13.9 g/dl (14.0-17.9); LYMPHOCYTES # (AUTO) 2.1 X10'3 (1.1-4.8); LYMPHOCYTES % (AUTO) 17.2 % (21-51); MEAN CORPUSCULAR HEMOGLOBIN 31.9 PG (27.0-31.0); MEAN CORPUSCULAR HGB CONC 34.2 g/dL (33.0-36.5); MEAN CORPUSCULAR VOLUME 93.3 FL (78-98); MEAN PLATELET VOLUME 7.1 FL (7.4-10.4); MONOCYTES # (AUTO) 1.2 X10'3 (0-0.9); MONOCYTES % (AUTO) 9.4 % (2-12); NEUTROPHILS # (AUTO) 8.9 X10'3 (1.8-7.7); NEUTROPHILS % (AUTO) 71.5 % (42-75); PLATELET COUNT 303 X10'3 (140-440); RED BLOOD COUNT 4.37 X10'6 (4.70-6.10); RED CELL DISTRIBUTION WIDTH 12.5 % (11.5-14.5); WHITE BLOOD COUNT 12.5 X10'3 (4.5-11.0)
[2022-08-05 20:26] LABS: ALANINE AMINOTRANSFERASE 26 U/L (12-78); ALBUMIN 3.4 G/DL (3.4-5.0); ALBUMIN/GLOBULIN RATIO 1.1 (1.1-1.5); ALKALINE PHOSPHATASE 66 IU/L (46-116); ANION GAP 7 (8-16); ASPARTATE AMINO TRANSFERASE 23 U/L (10-37); BILIRUBIN,TOTAL 0.5 MG/DL (0.1-1.0); BLOOD UREA NITROGEN 10 MG/DL (7-18); BUN/CREATININE RATIO 14.1 (5.4-32.0); CALCIUM 8.5 MG/DL (8.5-10.1); CHLORIDE 103 MMOL/L (99-107); CREATININE 0.71 MG/DL (0.60-1.10); GLUCOSE 101 MG/DL (70-104); POTASSIUM 3.3 MMOL/L (3.5-5.1); SODIUM 138 MMOL/L (135-145); TOTAL CARBON DIOXIDE 28.4 MMOL/L (24-32); TOTAL PROTEIN 6.6 G/DL (6.4-8.2); eGFR > 90 ML/MIN
[2022-08-05 20:37] LABS: CREATINE KINASE 342 U/L (39-308)
[2022-08-05 20:41] LABS: ETHANOL < 0.010 GM/DL (0.0-0.010)
[2022-08-05 21:49] VITALS: BP 130/75
== END 2022-08-05 22:05 | disposition home or self-care (01) ==
LOC: ER 18:06
DX: F25.0 Schizoaffective disorder, bipolar type (principal); R45.87 Impulsiveness
CPT/HCPCS: 36415; 80053; 80320; 82550; 84443; 85025; 99283

== ENCOUNTER 2023-03-06 13:02 | Emergency (ER) | payer MEDICAID ==
[~2023-03-06] VITALS: Ht 170.2 cm; Wt 70.5 kg
[2023-03-06 14:56] LABS: BASOPHILS % (AUTO) 0.5 % (0-1); EOSINOPHILS # (AUTO) 0.1 X10'3 (0-0.9); EOSINOPHILS % (AUTO) 1.7 % (0-6); HEMATOCRIT 42.8 % (42.0-52.0); HEMOGLOBIN 14.7 g/dl (14.0-17.9); LYMPHOCYTES # (AUTO) 2.4 X10'3 (1.1-4.8); LYMPHOCYTES % (AUTO) 29.9 % (21-51); MEAN CORPUSCULAR HEMOGLOBIN 32.1 PG (27.0-31.0); MEAN CORPUSCULAR HGB CONC 34.3 g/dL (33.0-36.5); MEAN CORPUSCULAR VOLUME 93.4 FL (78-98); MONOCYTES # (AUTO) 0.7 X10'3 (0-0.9); MONOCYTES % (AUTO) 8.9 % (2-12); NEUTROPHILS # (AUTO) 4.8 X10'3 (1.8-7.7); PLATELET COUNT 225 X10'3 (140-440); RED BLOOD COUNT 4.58 X10'6 (4.70-6.10); RED CELL DISTRIBUTION WIDTH 13.3 % (11.5-14.5); WHITE BLOOD COUNT 8.1 X10'3 (4.5-11.0)
[2023-03-06 15:20] LABS: ALANINE AMINOTRANSFERASE 16 U/L (12-78); ALBUMIN 3.7 G/DL (3.4-5.0); ALBUMIN/GLOBULIN RATIO 1.3 (1.1-1.5); ALKALINE PHOSPHATASE 78 IU/L (46-116); ANION GAP 5 (8-16); ASPARTATE AMINO TRANSFERASE 14 U/L (10-37); BILIRUBIN,TOTAL 0.2 MG/DL (0.1-1.0); BLOOD UREA NITROGEN 11 MG/DL (7-18); BUN/CREATININE RATIO 16.4 (10.0-20.0); CALCIUM 9.2 MG/DL (8.5-10.1); CHLORIDE 103 MMOL/L (99-107); CREATININE 0.67 MG/DL (0.60-1.10); ETHANOL < 0.010 GM/DL (0.0-0.010); GLUCOSE 107 MG/DL (70-104); POTASSIUM 3.7 MMOL/L (3.5-5.1); SODIUM 138 MMOL/L (135-145); TOTAL CARBON DIOXIDE 29.7 MMOL/L (24-32); TOTAL PROTEIN 6.6 G/DL (6.4-8.2); eGFR > 90 ML/MIN
[2023-03-06 22:31] LABS: CLARITY,URINE CLEAR (Clear); COLOR,URINE YELLOW (Yellow); GLUCOSE, URINE NEGATIVE (Neg); KETONES,URINE NEGATIVE (Neg); LEUKOCYTE ESTERASE ,URINE NEGATIVE (Neg); NITRITES, URINE NEGATIVE (Neg); OCCULT BLOOD,URINE NEGATIVE (Neg); PROTEIN,URINE NEGATIVE (Neg); UROBILINOGEN,URINE 0.2 E.U/dL (0.2-1.0)
[2023-03-06 22:41] LABS: UA COLLECTION TYPE CLN CATCH MIDSTREAM
[2023-03-06 22:54] LABS: URINE AMPHETAMINE SCREEN POSITIVE (Neg); URINE BARBITUATE SCREEN NEGATIVE (Neg); URINE BENZODIAZEPINES SCREEN NEGATIVE (Neg); URINE CANNABINOID SCREEN POSITIVE (Neg); URINE COCAINE SCREEN NEGATIVE (Neg); URINE METHADONE SCREEN NEGATIVE (Neg); URINE OPIATE SCREEN NEGATIVE (Neg); URINE PHENCYCLIDINE SCREEN NEGATIVE (Neg)
[2023-03-07] MEDS ORDERED: acetaminophen 325mg tablet PO ONE ×2 (01:50→12:35)
[2023-03-07] MEDS ORDERED: OLANZapine 5mg rapidly disint. tablet PO SCH (08:00)
[2023-03-07] MEDS: NICOTINE POLACRILEX 2 MG LOZENGE BC PRN (17:43)
[2023-03-08] MEDS: LORazepam 1 MG tablet PO PRN (16:52)
[2023-03-08] MEDS: NICOTINE POLACRILEX 2 MG LOZENGE BC PRN (16:52)
[2023-03-08] MEDS ORDERED: acetaminophen 325mg tablet PO ONE (17:50)
[2023-03-08] MEDS ORDERED: acetaminophen 325mg tablet PO PRN (18:10)
[2023-03-09] MEDS: LORazepam 1 MG tablet PO PRN ×2 (10:20→21:09)
[2023-03-09] MEDS: NICOTINE POLACRILEX 2 MG LOZENGE BC PRN (15:03)
[2023-03-09] MEDS ORDERED: OLANZapine 5mg rapidly disint. tablet PO STA (20:59)
[2023-03-09] MEDS ORDERED: haloperidol lactate 5mg/ml inj ONE (21:26)
[2023-03-09] MEDS ORDERED: diphenhydrAMINE 50 mg/ml inj ONE (21:26)
[2023-03-09] MEDS ORDERED: LORazepam 2 mg/ml vial ONE (21:28)
[2023-03-10 05:55] VITALS: BP 120/82
== END 2023-03-10 08:41 | disposition home or self-care (01) ==
LOC: ER 13:02
DX: Z04.6 Encounter for general psychiatric examination, requested by authority (principal); Z20.822 Contact with and (suspected) exposure to COVID-19; S05.12XA Contusion of eyeball and orbital tissues, left eye, initial encounter; S05.11XA Contusion of eyeball and orbital tissues, right eye, initial encounter; F31.9 Bipolar disorder, unspecified; X58.XXXA Exposure to other specified factors, initial encounter; Y93.89 Activity, other specified; Y92.89 Other specified places as the place of occurrence of the external cause; Y99.8 Other external cause status
CPT/HCPCS: 36415; 80053; 80305; 80320; 81003; 84443; 85025; 87635; 87811; 93005; 99285; C9803; 99284

== ENCOUNTER 2023-03-16 07:13 | Emergency (ER) | payer MEDICAID ==
[~2023-03-16] VITALS: Ht 170.2 cm; Wt 68.3 kg
[~2023-03-16 07:13] MED LIST changes: -RISP2TAB85 PO
[2023-03-16 07:17] VITALS: BP 128/87
[2023-03-16] MEDS ORDERED: BUPR1FIL3 SL (07:54)
--- NOTE | 2023-03-16 08:17 | NUR ---
Met with patient for [facility]. Patient needed a weeks supply of Suboxone. I gave him a card to call [facility] to continue Suboxone. Patient has my card to call me with any questions.
== END 2023-03-16 08:13 | disposition home or self-care (01) ==
LOC: ER 07:14
DX: F19.10 Other psychoactive substance abuse, uncomplicated (principal); Z56.0 Unemployment, unspecified; F31.9 Bipolar disorder, unspecified; F20.9 Schizophrenia, unspecified; Z79.899 Other long term (current) drug therapy
CPT/HCPCS: 99281

== ENCOUNTER 2023-08-20 09:55 | Emergency (ER) | payer MEDICAID ==
[~2023-08-20] VITALS: Ht 170.2 cm; Wt 71.7 kg
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
[2023-08-20] MEDS ORDERED: LIDOcaine 1% W/epiNEPHrine 1:100,000 20ml vial SQ ONE (10:35)
[2023-08-20] MEDS ORDERED: LIDOCAINE 1%/EPI 1:100,000 inj. 10 ML multi-dose vial SQ ONE (10:35)
[2023-08-20 10:43] VITALS: BP 110/75; PULSE 90; RESP 18; TEMP 97.6; O2SAT 95
--- NOTE | 2023-08-20 11:06 | NUR ---
I AGREE WITH JOHNATHAN DU LVN's ASSESSMENT
--- NOTE | 2023-08-20 11:15 | NUR ---
[facility] NUMBER [id number]
== END 2023-08-20 11:50 | disposition home or self-care (01) ==
LOC: ER 09:55
DX: S21.111A Laceration without foreign body of right front wall of thorax without penetration into thoracic cavity, initial encounter (principal); S01.81XA Laceration without foreign body of other part of head, initial encounter; S71.111A Laceration without foreign body, right thigh, initial encounter; W45.8XXA Other foreign body or object entering through skin, initial encounter; Y93.89 Activity, other specified; Y92.89 Other specified places as the place of occurrence of the external cause; Y99.8 Other external cause status
CPT/HCPCS: 12001; 99283; A6449